=== PATIENT | female | born 1935 | race Caucasian/White ===

== ENCOUNTER 2020-01-02 09:21 | Outpatient (CLI) | payer MEDICARE, BC, SELFPAY ==
[2020-01-02 09:53] LABS: Alanine Aminotransferase 18 U/L (4-35); Albumin Level 4.3 g/dL (3.5-5.1); Alkaline Phosphatase 81 U/L (38-126); Aspartate Amino Transferase 26 U/L (14-36); Bilirubin,Total 0.6 mg/dL (0.2-1.3); Blood Urea Nitrogen 16 mg/dL (7-17); Calcium 9.1 mg/dL (8.4-10.2); Carbon Dioxide 28 mmol/L (22-30); Chloride 106 mmol/L (98-107); Cholesterol 166 mg/dL (0-200); Estimated Glomerular Filt Rate 48; Glucose 112 mg/dL (65-105); HDL Direct 47 mg/dL; Potassium 4.1 mmol/L (3.4-5.0); Sodium 141 mmol/L (137-145); Triglycerides 141 mg/dL (<150)
[2020-01-02 10:04] LABS: LDL Cholesterol Direct 86 mg/dL
== END 2020-01-02 09:22 | disposition home or self-care (01) ==
PROVIDERS: PCP Internal Medicine; Visit Provider Nurse Practitioner
DX: E78.5 Hyperlipidemia, unspecified (principal)
CPT/HCPCS: 36415; 80053; 80061

== ENCOUNTER 2020-05-19 14:16 | Outpatient (CLI) | payer MEDICARE, BC, SELFPAY ==
--- NOTE | ~2020-05-19 | XR_ITS ---
EXAMINATION: XR_[id number]_CR DATE: 05/19/2020 14:44 INDICATION: Thyroid pain. Fall. TECHNIQUE: A frontal view of the chest and 3 views of the 4 ribs were obtained. COMPARISON: Chest 2 views 08/10/2019, CT abdomen and pelvis 08/10/2019 FINDINGS: There is mild atelectasis at right lung base. No pleural effusion or pneumothorax. The hear t size is normal. Surgical clips in the right upper quadrant are likely from cholecystectomy. IMPRESSION: 1. No rib fracture. Reviewed, dictated and finalized at location A. IMPRESSION: 1. No rib fracture.
== END 2020-05-19 14:17 | disposition home or self-care (01) ==
LOC: ANHIMG 14:24
PROVIDERS: PCP Internal Medicine; Visit Provider Internal Medicine
DX: R07.81 Pleurodynia (principal); W19.XXXA Unspecified fall, initial encounter
CPT/HCPCS: 71101

== ENCOUNTER 2020-07-01 10:16 | Outpatient (CLI) | payer MEDICARE, BC, SELFPAY ==
[2020-07-01 10:59] LABS: Hemoglobin A1C 5.9 % (<5.7)
[2020-07-01 11:06] LABS: Alanine Aminotransferase 19 U/L (4-35); Albumin Level 4.1 g/dL (3.5-5.1); Alkaline Phosphatase 79 U/L (38-126); Anion Gap 10 mmol/L (8-16); Aspartate Amino Transferase 24 U/L (14-36); Bilirubin,Total 0.5 mg/dL (0.2-1.3); Blood Urea Nitrogen 17 mg/dL (7-17); Calcium 9.4 mg/dL (8.4-10.2); Carbon Dioxide 27 mmol/L (22-30); Chloride 106 mmol/L (98-107); Cholesterol 169 mg/dL (0-200); Estimated Glomerular Filt Rate 53; Glucose 121 mg/dL (65-105); HDL Direct 45 mg/dL; Potassium 4.1 mmol/L (3.4-5.0); Sodium 143 mmol/L (137-145); Triglycerides 129 mg/dL (<150)
[2020-07-01 11:18] LABS: LDL Cholesterol Direct 98 mg/dL
== END 2020-07-01 10:17 | disposition home or self-care (01) ==
PROVIDERS: PCP Internal Medicine; Visit Provider Internal Medicine
DX: E78.5 Hyperlipidemia, unspecified (principal); R73.03 Prediabetes; I10 Essential (primary) hypertension
CPT/HCPCS: 36415; 80053; 80061; 83036

== ENCOUNTER → 2020-09-12 13:46 | Outpatient (REF) | payer MEDICARE, BC, SELFPAY | LOC: ANHLAB 13:46 | PROVIDERS: PCP Internal Medicine; Visit Provider Nurse Practitioner | DX: D49.2 Neoplasm of unspecified behavior of bone, soft tissue, and skin (principal) | CPT/HCPCS: 88305 ==

== ENCOUNTER 2020-09-16 10:09 | Outpatient (CLI) | payer MEDICARE, BC, SELFPAY ==
--- NOTE | ~2020-09-16 | MM_ITS ---
EXAMINATION: MM screening brooke BI w radha HISTORY: Screening TECHNIQUE: Craniocaudal and mediolateral oblique 3-D tomosynthesis images were obtained and synthetic 2-D images were generated. CAD analysis was submitted and interpreted. COMPARISON: Comparison to multiple prior studies sequentially, with oldest reviewed study dated 08/03. BREAST PARENCHYMAL COMPOSITION: There are scattered areas of fibroglandular density. FINDINGS: There is no evidence of suspicious mass, calcification, or architectural distortion to sugg est malignancy in either breast. There has been no suspicious interval change. IMPRESSION: 1. No mammographic evidence of malignancy. 2. Recommend routine screening mammography in one year. BI-RADS Category 1: Negative Reviewed, dictated and finalized at location A. 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
== END 2020-09-16 10:10 | disposition home or self-care (01) ==
LOC: ANHIMG 10:13
PROVIDERS: PCP Internal Medicine; Visit Provider Nurse Practitioner Obstetrics & Gynecology
DX: Z12.31 Encounter for screening mammogram for malignant neoplasm of breast (principal)
CPT/HCPCS: 77063; 77067

== ENCOUNTER → 2020-11-07 10:03 | Outpatient (REF) | payer MEDICARE, BC, SELFPAY | LOC: ANHLAB 10:03 | PROVIDERS: PCP Internal Medicine; Visit Provider Nurse Practitioner | DX: C44.319 Basal cell carcinoma of skin of other parts of face (principal) | CPT/HCPCS: 88305; 88331 ==

== ENCOUNTER 2020-12-29 09:04 | Outpatient (CLI) | payer MEDICARE, BC, SELFPAY ==
--- NOTE | ~2020-12-29 | DEXA_ITS ---
Bone Density Report Name: Barbie Shipman Age: 85 Sex: Female Ethnicity: White Date of : 1935 Indication: postmenopausal; prior fracture; Referring Provider: Raina, Rosalie Flower Study: Bone densitometry was performed. Exam Date: December 29, 2020 Accession number: [id number] Bone Density: Region BMD T-score Z-score Classification AP Spine (L1-L4) 1.141 0.9 3.7 Normal Femoral Neck (Left) 0.752 -0.9 1.6 Normal Total Hip (Left) 0.956 0.1 2.4 Normal Total Hip Bilateral Avg 0.934 -0.1 2.2 Normal Femoral Neck (Right) 0.683 -1.5 1.0 Osteopenia Total Hip (Right) 0.910 -0.3 2.0 Normal World Health Organization criteria for BMD impression classify patients as: Normal (T-score at or above -1.0), Osteopenia (T-score between -1.0 and -2.5), or Osteoporosis (T-score at or below -2.5). 10-year Fracture Risk(1): Major Osteoporotic Fracture 19% Hip Fracture 4.4% Reported Risk Factors: [place] (), Neck BMD=0.683, BMI=31.6, previous fracture (1) FRAX(R) Version 3.08. Fracture probability calculated for an untreated patient. Fracture probability may be lower if the patient has received treatment. Previous Exams: Region Exam Age BMD T-score BMD Change BMD Change Date g/cm2 vs Baseline vs Previous AP Spine(L1-L4) 12/29/2020 85 1.141 0.9 0.057(5.2%)# 0.057(5.2%)# 08/08/2010 75 1.084 0.3 Total Hip(Left) 12/29/2020 85 0.956 0.1 -0.012(-1.2%)# -0.012(-1.2%)# 08/08/2010 75 0.968 0.2 Total Hip(Right) 12/29/2020 85 0.910 -0.3 0.012(1.3%)# 0.012(1.3%)# 08/08/2010 75 0.898 -0.4 *Denotes significance at 95% confidence level, LSC for AP Spine = 0.022 g/cm2, LSC for Total Hip = 0.027 g/cm2 Clinical Information Provided by Patient: Has had a low trauma fracture Has used the following medications: Vitamin D, Calcium Patient maximum height was 65 No regular weight bearing exercise Onset of menses at age 14 Number of children 5 Impression: The patient has low bone mass, based on the Right Femoral Neck T-score. The patient has an estimated ten-year risk of hip fracture of 4.4% and an estimated ten-year risk of major fracture of 19%, based on the WHO FRAX algorithm. The patient has risk factors, including: previous fracture. No significant bone loss was observed. Discussion: BONE DENSITY IS LOW AT ONE OR MORE SKELETAL SITES. THE PATIENT'S BMD AND CLINICAL RISK FACTORS CONTRIBUTE TO THIS PATIENT'S INCREASED RISK OF FRAC
[2020-12-29 09:39] LABS: Alanine Aminotransferase 17 U/L (4-35); Albumin Level 4.1 g/dL (3.5-5.1); Alkaline Phosphatase 80 U/L (38-126); Anion Gap 7 mmol/L (8-16); Aspartate Amino Transferase 37 U/L (14-36); Bilirubin,Total 0.7 mg/dL (0.2-1.3); Blood Urea Nitrogen 17 mg/dL (7-17); Carbon Dioxide 29 mmol/L (22-30); Chloride 104 mmol/L (98-107); Cholesterol 150 mg/dL (0-200); Estimated Glomerular Filt Rate 39; Glucose 115 mg/dL (65-105); HDL Direct 41 mg/dL; Potassium 4.3 mmol/L (3.4-5.0); Sodium 140 mmol/L (137-145); Triglycerides 121 mg/dL (<150)
[2020-12-29 09:50] LABS: LDL Cholesterol Direct 83 mg/dL
[2020-12-29 11:38] LABS: Hemoglobin A1C 5.9 % (<5.7)
== END 2020-12-29 09:05 | disposition home or self-care (01) ==
PROVIDERS: PCP Internal Medicine; Referring Provider Nurse Practitioner; Visit Provider Nurse Practitioner Obstetrics & Gynecology
DX: E78.5 Hyperlipidemia, unspecified (principal); R73.03 Prediabetes; Z78.0 Asymptomatic menopausal state; M85.88 Other specified disorders of bone density and structure, other site
CPT/HCPCS: 36415; 77080; 80053; 80061; 83036

== ENCOUNTER → 2021-03-17 01:56 | Outpatient (CLI) | payer MEDICARE, BC, SELFPAY ==
[2021-03-17 19:11] LABS: SARS-CoV-2 RNA PCR Negative
== END ==
PROVIDERS: PCP Internal Medicine; Visit Provider Internal Medicine
DX: R68.89 Other general symptoms and signs (principal); Z20.822 Contact with and (suspected) exposure to COVID-19
CPT/HCPCS: C9803; U0003; U0005

== ENCOUNTER 2021-07-05 08:27 | Outpatient (CLI) | payer MEDICARE, BC, SELFPAY ==
[2021-07-05 09:31] LABS: Alanine Aminotransferase 22 U/L (4-35); Albumin Level 4.2 g/dL (3.5-5.1); Alkaline Phosphatase 72 U/L (38-126); Anion Gap 7 mmol/L (8-16); Aspartate Amino Transferase 34 U/L (14-36); Bilirubin,Total 0.8 mg/dL (0.2-1.3); Blood Urea Nitrogen 16 mg/dL (7-17); Calcium 8.7 mg/dL (8.4-10.2); Carbon Dioxide 30 mmol/L (22-30); Chloride 104 mmol/L (98-107); Cholesterol 143 mg/dL (0-200); Estimated Glomerular Filt Rate 43; Glucose 109 mg/dL (65-110); HDL Direct 40 mg/dL; Potassium 3.9 mmol/L (3.4-5.0); Sodium 141 mmol/L (137-145); Triglycerides 136 mg/dL (<150)
[2021-07-05 09:42] LABS: LDL Cholesterol Direct 80 mg/dL
[2021-07-05 11:32] LABS: Hemoglobin A1C 5.9 % (<5.7)
== END 2021-07-05 08:28 | disposition home or self-care (01) ==
PROVIDERS: PCP Internal Medicine; Visit Provider Internal Medicine
DX: R73.03 Prediabetes (principal); I10 Essential (primary) hypertension; E78.5 Hyperlipidemia, unspecified; Z79.899 Other long term (current) drug therapy
CPT/HCPCS: 36415; 80053; 80061; 83036

== ENCOUNTER → 2021-09-14 09:52 | Outpatient (CLI) | payer MEDICARE, BC, SELFPAY ==
[2021-09-14 14:13] LABS: Influenza A QL RT-PCR Negative (Negative); Influenza B QL RT-PCR Negative (Negative); SARS-CoV-2 RNA PCR Negative
== END ==
PROVIDERS: PCP Internal Medicine; Visit Provider Internal Medicine
DX: R09.89 Other specified symptoms and signs involving the circulatory and respiratory systems (principal); Z20.822 Contact with and (suspected) exposure to COVID-19
CPT/HCPCS: 87502; C9803; U0003; U0005

== ENCOUNTER 2021-11-02 14:26 | Outpatient (CLI) | payer MEDICARE, BC, SELFPAY ==
--- NOTE | ~2021-11-02 | XR_ITS ---
EXAMINATION: XR chest 2V 11/02/2021 14:44 INDICATION: Acute upper respiratory infection PROCEDURE: 2 view chest COMPARISON: Comparison to multiple prior studies sequentially, with oldest reviewed study dated 01/26. FINDINGS: The lungs are clear. Elevated right diaphragm. The cardiomediastinal silhouette is within n ormal limits. There are no pleural effusions. There is no pneumothorax suspected. There are cholec ystectomy clips. IMPRESSION: 1: NO ACUTE CARDIOPULMONARY DISEASE. Reviewed, dictated and finalized at location A. 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
== END 2021-11-02 14:27 | disposition home or self-care (01) ==
PROVIDERS: PCP Internal Medicine; Visit Provider Internal Medicine
DX: J06.9 Acute upper respiratory infection, unspecified (principal)
CPT/HCPCS: 71046

== ENCOUNTER 2022-01-11 08:57 | Outpatient (CLI) | payer MEDICARE, BC, SELFPAY ==
[2022-01-11 16:35] LABS: Alanine Aminotransferase 20 U/L (6-35); Alkaline Phosphatase 87 U/L (38-126); Anion Gap 6 mmol/L (8-16); Aspartate Amino Transferase 80 U/L (14-36); Bilirubin,Total 0.7 mg/dL (0.2-1.3); Blood Urea Nitrogen 16 mg/dL (7-17); Calcium 8.9 mg/dL (8.4-10.2); Carbon Dioxide 25 mmol/L (22-30); Chloride 109 mmol/L (98-107); Cholesterol 167 mg/dL (0-200); Estimated Glomerular Filt Rate 43; Glucose 103 mg/dL (65-110); HDL Direct 38 mg/dL; Potassium 4.3 mmol/L (3.4-5.0); Sodium 140 mmol/L (137-145); Triglycerides 151 mg/dL (<150)
[2022-01-11 16:46] LABS: LDL Cholesterol Direct 87 mg/dL
== END 2022-01-11 08:58 | disposition home or self-care (01) ==
PROVIDERS: PCP Internal Medicine; Visit Provider Nurse Practitioner
DX: E78.5 Hyperlipidemia, unspecified (principal); R73.03 Prediabetes
CPT/HCPCS: 36415; 80053; 80061; 83036

== ENCOUNTER 2022-01-20 12:47 | Outpatient (CLI) | payer MEDICARE, BC, SELFPAY ==
--- NOTE | ~2022-01-20 | CT_ITS ---
EXAMINATION: CT sinus wo con DATE: 01/20/2022 13:27 INDICATION: TECHNIQUE: Computed tomography (CT) of the paranasal sinuses was performed without intravenous contra st. The dose-length product (DLP) was 340.69 mGy-cm. Iterative reconstruction was used. COMPARISON: None FINDINGS: Post surgical changes in the ethmoid air cells and medial maxillary sinus quilse. Opacified frontal and remnant ethmoid air cells. Thick mucosa within the bilateral sphenoid and maxillary sinus es. No air-fluid levels. Mild leftward bowing of the upper, posterior bony nasal septum. Mastoid air cells are well aerated. Bilateral antral windows are open. Bilateral lens replacements. IMPRESSION: 1. Pansinusitis-extensive mucoperiosteal thickening throughout the paranasal sinuses. 2. Post surgical changes, described above. Reviewed, dictated and finalized at location K. IMPRESSION: 1. Pansinusitis-extensive mucoperiosteal thickening throughout the paranasal si nuses. 2. Post surgical changes, described above.
== END 2022-01-20 12:48 | disposition home or self-care (01) ==
PROVIDERS: PCP Internal Medicine; Visit Provider Internal Medicine
DX: R51.9 Headache, unspecified (principal); J01.40 Acute pansinusitis, unspecified; Z98.890 Other specified postprocedural states
CPT/HCPCS: 70486

== ENCOUNTER 2022-05-16 14:42 | Outpatient (NON) | payer MEDICARE, BC, SELFPAY | END 2022-05-16 14:43 | disposition home or self-care (01) | LOC: ANHGOSHLAB 14:45 | PROVIDERS: PCP Internal Medicine; Visit Provider Otolaryngology | DX: J33.9 Nasal polyp, unspecified (principal); J32.9 Chronic sinusitis, unspecified | CPT/HCPCS: 87070 ==

== ENCOUNTER 2022-07-30 09:27 | Outpatient (CLI) | payer MEDICARE, BC, SELFPAY ==
[2022-07-30 13:35] LABS: Alanine Aminotransferase 21 U/L (6-35); Albumin Level 4.2 g/dL (3.5-5.1); Alkaline Phosphatase 85 U/L (38-126); Anion Gap 12 mmol/L (8-16); Aspartate Amino Transferase 31 U/L (14-36); Bilirubin,Total 0.7 mg/dL (0.2-1.3); Blood Urea Nitrogen 14 mg/dL (7-17); Calcium 8.8 mg/dL (8.4-10.2); Carbon Dioxide 23 mmol/L (22-30); Chloride 106 mmol/L (98-107); Cholesterol 167 mg/dL (0-200); Estimated Glomerular Filt Rate 47; Glucose 96 mg/dL (65-110); HDL Direct 40 mg/dL; Potassium 4.1 mmol/L (3.4-5.0); Sodium 141 mmol/L (137-145); Triglycerides 155 mg/dL (<150)
[2022-07-30 13:46] LABS: LDL Cholesterol Direct 87 mg/dL
[2022-07-30 14:21] LABS: Hemoglobin A1C 6.4 % (<5.7)
== END 2022-07-30 09:28 | disposition home or self-care (01) ==
LOC: ANHWCLAB 09:29
PROVIDERS: PCP Internal Medicine; Visit Provider Internal Medicine
DX: R73.03 Prediabetes (principal); I10 Essential (primary) hypertension; Z79.899 Other long term (current) drug therapy; E78.5 Hyperlipidemia, unspecified
CPT/HCPCS: 36415; 80053; 80061; 83036

== ENCOUNTER 2023-02-09 08:39 | Outpatient (CLI) | payer MEDICARE, BC, SELFPAY ==
[2023-02-09 09:20] LABS: Alanine Aminotransferase 21 U/L (6-35); Albumin Level 4.1 g/dL (3.5-5.1); Alkaline Phosphatase 81 U/L (38-126); Anion Gap 2 mmol/L (8-16); Aspartate Amino Transferase 27 U/L (14-36); Bilirubin,Total 0.6 mg/dL (0.2-1.3); Blood Urea Nitrogen 16 mg/dL (7-17); Carbon Dioxide 32 mmol/L (22-30); Chloride 107 mmol/L (98-107); Cholesterol 149 mg/dL (0-200); Estimated Glomerular Filt Rate 39; Glucose 115 mg/dL (65-110); HDL Direct 40 mg/dL; Potassium 4.3 mmol/L (3.4-5.0); Sodium 141 mmol/L (137-145); Triglycerides 140 mg/dL (<150)
[2023-02-09 09:31] LABS: LDL Cholesterol Direct 84 mg/dL
== END 2023-02-09 08:40 | disposition home or self-care (01) ==
LOC: ANHLAB 08:43
PROVIDERS: PCP Family Medicine; Visit Provider Nurse Practitioner
DX: E78.5 Hyperlipidemia, unspecified (principal); R73.03 Prediabetes
CPT/HCPCS: 36415; 80053; 80061; 83036

== ENCOUNTER 2023-03-18 11:40 | Outpatient (CLI) | payer MEDICARE, BC, SELFPAY ==
[2023-03-18 12:16] LABS: Alanine Aminotransferase 20 U/L (6-35); Aspartate Amino Transferase 27 U/L (14-36)
== END 2023-03-18 11:41 | disposition home or self-care (01) ==
PROVIDERS: PCP Family Medicine; Visit Provider Podiatrist Foot & Ankle Surgery
DX: B35.1 Tinea unguium (principal)
CPT/HCPCS: 36415; 84450; 84460

== ENCOUNTER 2023-05-23 08:33 | Outpatient (CLI) | payer MEDICARE, BC, SELFPAY ==
--- NOTE | ~2023-05-23 | MM_ITS ---
EXAMINATION: MM screening brooke BI w radha HISTORY: Screening TECHNIQUE: Craniocaudal and mediolateral oblique 3-D tomosynthesis images were obtained and synthetic 2-D images were generated. CAD analysis was submitted and interpreted. COMPARISON: Comparison to multiple prior studies sequentially, with oldest reviewed study dated 11/09. BREAST PARENCHYMAL COMPOSITION: The breasts are almost entirely fatty. FINDINGS: There is no evidence of suspicious mass, calcification, or architectural distortion to sugg est malignancy in either breast. There has been no suspicious interval change. IMPRESSION: 1. No mammographic evidence of malignancy. 2. Recommend routine screening mammography in one year. BI-RADS Category 1: Negative Reviewed, dictated and finalized at location A.
--- NOTE | ~2023-05-23 | DEXA_ITS ---
Bone Density Report Name: JUAN GALEANO Age: 88 Sex: Female Ethnicity: White Date of : 1935 Indication: postmenopausal; screening for osteoporosis; height loss; inflammatory bowel disease; prior fracture; Referring Provider: ANGÉLICA PERALTA Study: Bone densitometry was performed. Exam Date: May 23, 2023 Accession number: [id number] Bone Density: Region BMD T-score Z-score Classification AP Spine(L1-L4) 1.104 0.5 3.4 Normal Femoral Neck (Left) 0.734 -1.0 1.5 Normal Total Hip (Left) 0.990 0.4 2.7 Normal Femoral Neck (Right) 0.680 -1.5 1.0 Osteopenia Total Hip (Right) 0.976 0.3 2.6 Normal Total Hip Mean 0.983 0.4 2.7 Normal World Health Organization criteria for BMD impression classify patients as: Normal (T-score at or above -1.0), Osteopenia (T-score between -1.0 and -2.5), or Osteoporosis (T-score at or below -2.5). 10-year Fracture Risk(1): Major Osteoporotic Fracture 17% Hip Fracture 4.1% Reported Risk Factors: [place] (), Neck BMD=0.680, BMI=37.2, previous fracture (1) FRAX(R) Version 3.08. Fracture probability calculated for an untreated patient. Fracture probability may be lower if the patient has received treatment. Previous Exams: Region Exam Age BMD T-score BMD Change BMD Change Date g/cm2 vs Baseline vs Previous AP Spine (L1-L4) 05/23/2023 88 1.104 0.5 -0.036 (-3.2%) -0.036 (-3.2%) 12/29/2020 85 1.141 0.9 Total Hip(Left) 05/23/2023 88 0.990 0.4 0.034 (3.5%)# 0.034 (3.5%)# 12/29/2020 85 0.956 0.1 Total Hip(Right) 05/23/2023 88 0.976 0.3 0.066 (7.3%)# 0.066 (7.3%)# 12/29/2020 85 0.910 -0.3 *Denotes significance at 95% confidence level, LSC for AP Spine = 0.022 g/cm2, LSC for Total Hip = 0.027 g/cm2 # Denotes dissimilar scan types or analysis methods Clinical Information Provided by Patient: Has had a low trauma fracture Has used the following medications: Vitamin D, Calcium Has the following medical conditions: Inflammatory bowel diseases Patient maximum height was 64.5 Onset of menses at age 14 Number of children 5 Impression: The patient has low bone mass, based on the Right Femoral Neck T-score. The patient has an estimated ten-year risk of hip fracture of 4.1% and an estimated ten-year risk of major fracture of 17%, based on the WHO FRAX algorithm. The patient has risk factors, including: previous fracture. No significant bone loss was observed.
== END 2023-05-23 08:34 | disposition home or self-care (01) ==
PROVIDERS: PCP Family Medicine; Visit Provider Nurse Practitioner Family
DX: Z12.31 Encounter for screening mammogram for malignant neoplasm of breast (principal); Z78.0 Asymptomatic menopausal state; M85.851 Other specified disorders of bone density and structure, right thigh
CPT/HCPCS: 77063; 77067; 77080

== ENCOUNTER 2023-07-09 12:07 | Outpatient (CLI) | payer MEDICARE, BC, SELFPAY ==
[2023-07-09 12:51] LABS: Alanine Aminotransferase 18 U/L (6-35); Aspartate Amino Transferase 48 U/L (14-36)
== END 2023-07-09 12:08 | disposition home or self-care (01) ==
PROVIDERS: PCP Family Medicine; Visit Provider Podiatrist Foot & Ankle Surgery
DX: B35.1 Tinea unguium (principal)
CPT/HCPCS: 36415; 84450; 84460

== ENCOUNTER 2023-08-20 12:18 | Outpatient (CLI) | payer MEDICARE, BC, SELFPAY ==
[2023-08-20 13:05] LABS: Basophils Percent Auto 0.8 % (0.2-1.2); Eosinophils Absolute Auto 0.2 K/mm3 (0-0.3); Eosinophils Percent Auto 3.5 % (0-4.4); Hematocrit 42.8 % (37.0-47.0); Hemoglobin 13.5 g/dL (12.0-15.0); Lymphocytes Absolute Auto 1.97 K/mm3 (0.9-3.2); Lymphocytes Percent Auto 37.9 % (18.3-44.2); Mean Corpuscular HGB Conc 31.5 g/dl (32-36); Mean Corpuscular Hemoglobin 29.5 pg (26-34); Mean Corpuscular Volume 93.4 fl (80-100); Mean Platelet Volume 10.9 fl (7.4-10.4); Monocytes Absolute Auto 0.5 K/mm3 (0.1-0.6); Neutrophils Absolute Auto 2.5 K/mm3 (1.3-6.7); Neutrophils Percent Auto 48.8 % (45.5-73.1); Platelet Count Result 220 k/mm3 (150-375); Red Blood Count 4.58 M/mm3 (4.2-5.4); Red Cell Distribution Width 14.6 % (11.5-14.5); White Blood Count 5.2 K/mm3 (4.5-10.0)
[2023-08-20 13:14] LABS: Hemoglobin A1C 6.2 % (<5.7)
[2023-08-20 13:15] LABS: Alanine Aminotransferase 20 U/L (6-35); Albumin Level 3.9 g/dL (3.5-5.1); Alkaline Phosphatase 75 U/L (38-126); Anion Gap 6 mmol/L (8-16); Aspartate Amino Transferase 27 U/L (14-36); Bilirubin,Total 0.7 mg/dL (0.2-1.3); Blood Urea Nitrogen 14 mg/dL (7-17); Calcium 9.1 mg/dL (8.4-10.2); Carbon Dioxide 25 mmol/L (22-30); Chloride 110 mmol/L (98-107); Estimated Glomerular Filt Rate 47; Glucose 104 mg/dL (65-110); Potassium 4.2 mmol/L (3.4-5.0); Sodium 141 mmol/L (137-145)
[2023-08-20 13:45] LABS: Thyroid Stimulating Hormone 0.321 uIU/mL (0.465-4.680)
== END 2023-08-20 12:19 | disposition home or self-care (01) ==
LOC: ANHLAB 12:20
PROVIDERS: PCP Nurse Practitioner Family; Visit Provider Nurse Practitioner Family
DX: E78.5 Hyperlipidemia, unspecified (principal); R73.03 Prediabetes; I10 Essential (primary) hypertension; R53.83 Other fatigue
CPT/HCPCS: 36415; 80053; 83036; 84443; 85025

== ENCOUNTER 2023-08-22 12:56 | Outpatient (CLI) | payer MEDICARE, BC, SELFPAY ==
--- NOTE | ~2023-08-22 | XR_ITS ---
AP and oblique views of the bilateral ribs, and PA and lateral chest radiographs Clinical History: Pain Findings: No rib fracture is seen. Osseous alignment is anatomic. Lungs are clear, without focal cons olidation or pleural effusion. Cardiomediastinal contour is within normal limits. Soft tissues are un remarkable. Impression: No rib fracture is seen. Normal chest. Reviewed, dictated and finalized at [facility]. ASSEMBLER Impression: No rib fracture is seen. Normal chest.
== END 2023-08-22 12:57 | disposition home or self-care (01) ==
PROVIDERS: PCP Nurse Practitioner Family; Visit Provider Nurse Practitioner Family
DX: R07.81 Pleurodynia (principal)
CPT/HCPCS: 71046; 71110

== ENCOUNTER 2023-10-17 14:30 | Outpatient (CLI) | payer MEDICARE, BC, SELFPAY ==
--- NOTE | ~2023-10-17 | CT_ITS ---
. EXAMINATION: CT abdomen wo con DATE: 10/17/2023 14:49 INDICATION: Periodic right lower quadrant abdominal pain TECHNIQUE: Computed tomography (CT) of the abdomen and pelvis was performed without intravenous contr ast. Automated exposure control and iterative reconstruction technique were employed. Exam dose: 827 .72 mGy-cm total exam DLP. COMPARISON: 08/10/2019 CT abdomen pelvis FINDINGS: Chronic discoid atelectasis or more likely scarring in the lower lobes. No basilar pulmonar y consolidation. No pericardial or pleural effusion. Cardiomegaly. Coronary artery calcification. Status post cholecystectomy. The liver, spleen, pancreas, adrenal glands are unremarkable. Multiple b ilateral renal cysts, measuring up to 3.8 cm dimension on the right, 6 cm on the left. Normal appendix. Diverticulosis of the right and left colon. No CT evidence of diverticulitis. No bowel obstruction or intraperitoneal free air is detected. There is atherosclerotic calcification but normal caliber of the abdominal aorta. Probably calcificat ion at the origins of both renal arteries. No intraperitoneal or retroperitoneal mass lesion or adeno katey or ascites is detected. Small fat-containing umbilical hernia. Degenerative changes of the thoracic and lumbar spine, including prominent degenerative changes apoph yseal joints with associated grade 1 anterolisthesis at the L4-5 level, multilevel degenerative disc disease, particularly severe at L2-3, L4-5, L5-S1, most severe at L3-4. No suspicious osteolytic or osteoblastic lesions are noted. There is benign L5 vertebral body hemangi laurel. 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 Reviewed, dictated and finalized at location L. ECTOR OF AQUARIUM SPECIMENS
== END 2023-10-17 14:31 | disposition home or self-care (01) ==
LOC: ANHIMG 14:32
PROVIDERS: PCP Nurse Practitioner Family; Visit Provider Nurse Practitioner Family
DX: R10.9 Unspecified abdominal pain (principal); R91.8 Other nonspecific abnormal finding of lung field; I51.7 Cardiomegaly; Z90.49 Acquired absence of other specified parts of digestive tract; N28.1 Cyst of kidney, acquired; K57.90 Diverticulosis of intestine, part unspecified, without perforation or abscess without bleeding
CPT/HCPCS: 74150

== ENCOUNTER 2024-03-03 09:07 | Outpatient (CLI) | payer MEDICARE, BC, SELFPAY ==
[2024-03-03 10:50] LABS: Alanine Aminotransferase 16 U/L (6-35); Albumin Level 4.1 g/dL (3.5-5.1); Alkaline Phosphatase 73 U/L (38-126); Anion Gap 7 mmol/L (4-12); Aspartate Amino Transferase 26 U/L (14-36); Bilirubin,Total 0.9 mg/dL (0.2-1.3); Blood Urea Nitrogen 16 mg/dL (7-17); Carbon Dioxide 26 mmol/L (22-30); Chloride 108 mmol/L (98-107); Estimated Glomerular Filt Rate 47; Glucose 100 mg/dL (65-110); Potassium 4.2 mmol/L (3.4-5.0); Sodium 141 mmol/L (137-145)
== END 2024-03-03 09:08 | disposition home or self-care (01) ==
LOC: ANHLAB 09:10
PROVIDERS: PCP Nurse Practitioner Family; Visit Provider Nurse Practitioner Family
DX: R79.89 Other specified abnormal findings of blood chemistry (principal); R73.03 Prediabetes; I10 Essential (primary) hypertension; E78.5 Hyperlipidemia, unspecified; F41.9 Anxiety disorder, unspecified
CPT/HCPCS: 36415; 80053; 84439; 84443

== ENCOUNTER 2024-06-10 14:00 | Outpatient (CLI) | payer MEDICARE, BC, SELFPAY ==
--- NOTE | ~2024-06-10 | MM_ITS ---
EXAMINATION: MM screening brooke BI w radha HISTORY: Screening TECHNIQUE: Craniocaudal and mediolateral oblique 3-D tomosynthesis images were obtained and synthetic 2-D images were generated. CAD analysis was submitted and interpreted. COMPARISON: Echo multiple 06/15/2014 BREAST PARENCHYMAL COMPOSITION: Not Dense: The breasts are almost entirely fatty. FINDINGS: There is no evidence of suspicious mass, calcification, or architectural distortion to sugg est malignancy in either breast. There has been no suspicious interval change. IMPRESSION: 1. No mammographic evidence of malignancy. 2. Recommend routine screening mammography in one year. BI-RADS Category 1: Negative Reviewed, dictated and finalized at location B.
== END 2024-06-10 14:01 | disposition home or self-care (01) ==
LOC: ANHIMG 14:02
PROVIDERS: PCP Nurse Practitioner Family; Visit Provider Nurse Practitioner Family
DX: Z12.31 Encounter for screening mammogram for malignant neoplasm of breast (principal)
CPT/HCPCS: 77063; 77067

== ENCOUNTER 2024-09-03 15:30 | Emergency (ER) | payer MEDICARE, BC, SELFPAY ==
--- NOTE | ~2024-09-03 | XR_ITS ---
EXAMINATION: XR chest 2V DATE: 09/03/2024 16:16 INDICATION: Cough. TECHNIQUE: Frontal and lateral views of the chest were obtained. COMPARISON: Chest 2 views 08/22/2023 FINDINGS: There is no pneumonia, pleural effusion, or pneumothorax. The heart size is normal. Surgica l clips in the right upper quadrant are likely from cholecystectomy. IMPRESSION: 1. No acute cardiopulmonary disease. Reviewed, dictated and finalized at location A. 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
[2024-09-03 15:45] VITALS: BP 137/66; PULSE 61; RESP 16; TEMP 36.3; O2SAT 98
--- NOTE | 2024-09-03 16:00 | ED.URI ---
HPI - URI/Sore Throat General Chief Complaint: Upper Respiratory Infection Stated Complaint: chest pain/coughing/side pain Time Seen by Provider: 09/03/24 16:21 Source: patient, RN notes reviewed and old records reviewed Mode of arrival: ambulatory Limitations: no limitations History of Present Illness HPI Narrative: patient presents with complaints of productive cough for 8 or 9 days. She reports that it is getting worse. She reports that she has decreased energy, has been sleeping more. Denies any shortness of breath, but does report extreme increase in sputum production. unsure of fever status. She does report some right lower lung pain, worse with cough. She has been taking [id number] medications with minimal relief. Has had multiple sick contacts recently Related Data Home Medications ?Medication ?Instructions ?Recorded ?Confirmed ?Last Taken ?Type acetaminophen 500 mg tablet 500 mg PO Q6H PRN Pain 09/04/19 04/22/24 Unknown History (Tylenol Extra Strength) multivitamin with minerals 1 tablet PO DAILY 09/04/19 04/22/24 Unknown History (Hair,Skin and Nails tablet) turmeric 400 mg capsule 400 mg PO DAILY 09/04/19 04/22/24 Unknown History Allergies Allergy/AdvReac Type Severity Reaction Status Date / Time codeine Allergy Mild NUMBNESS Verified 09/03/24 15:36 levofloxacin Allergy Mild Nausea and Verified 09/03/24 15:36 Vomiting Penicillins Allergy Mild SKIN SORE Verified 09/03/24 15:36 TO TOUCH propranolol Allergy Mild CAN'T Verified 09/03/24 15:36 TOLERATE, ABD PAIN Sulfa (Sulfonamide Allergy Mild ABD PAIN Verified 09/03/24 15:36 Antibiotics) verapamil Allergy Mild ABD PAIN Verified 09/03/24 15:36 ondansetron (From Zofran) Allergy Unknown Unknown Verified 09/03/24 15:36 Review of Systems Review of Systems: All systems reviewed & are unremarkable except as noted in HPI and below Constitutional: Constitutional: Reports no additional constitutional complaints and Reports lethargy ENT: Reports system reviewed and no additional complaints, except as documented Cardiovascular: Cardiovascular: Reports no additional cardiovascular complaints Respiratory: Respiratory: Reports no additional respiratory complaints, Reports chest congestion, Reports cough and Reports wheezing Gastrointestinal: Gastrointestinal: Reports no additional gastrointestinal complaints PMFSH Past Medical History Medical History Plantar fasciitis of left foot COVID-19 History of cardiac disorder History of open sigmoidectomy Basal cell carcinoma (BCC) of right forehead Skin neoplasm On longterm drug therapy Facial pain Stress at home Paroxysmal atrial fibrillation Benign essential hypertension COPD, mild Other and unspecified hyperlipidemia Prediabetes Primary insomnia Generalized weakness History of atrial fibrillation Chest pain Foot fracture, right Patella fracture rt patella Anxiety Arthritis IBS (irritable bowel syndrome) Diverticulitis HLD (hyperlipidemia) Mitral valve prolapse Restless leg syndrome Cataracts, bilateral Seborrheic keratosis Actinic keratosis Skin cancer screening History of basal cell carcinoma (BCC) Surgical History Surgical History Status post laparoscopic-assisted sigmoidectomy Hx of local excision of skin lesion History of arthroscopic knee surgery rt knee Hx of cataract surgery History of cholecystectomy History of sinus surgery 1992, 2001, 2004 History of back surgery Family History Family History Father Carcinoma of colon Hypertension Mother TIA (transient ischemic attack) Heart palpitations Sibling Arthritis Other Family history of malignant neoplasm Social History Social History Smoking packs per day: 0.5 Smoking cigarettes per day: 10.0 Years smoked: 2 Smoking pack-years: 1.00 Smoking status: Former smoker Tobacco type: cigarettes Second hand tobacco smoke exposure: No Smoking end date: 09/10/1959 Alcohol intake: never Substance use: never Substance use type: does not use Lack of Transportation: No Lack of Food: Never True Current Housing: I Have Housing Concerned About Future Housing: No Difficulty Paying Gas/Electric Bills: No Difficulty Paying for Meds: No Currently Unemployed: No Education: High School Diploma/GED Difficulty w/ Childcare or Family Care: No Living arrangements: alone Additional living arrangements comments: daughter lives with Occupation/Education: retired Gender identity (if verbalized by the patient): Female Sexual Orientation (if Verbalized by the Patient): Straight or Heterosexual Spiritual care concerns: No Comments At the time of my signature, I reviewed and agree with the nursing past medical, surgical, social, and family history. There is no relevant family history pertinent to the patient complaint. Exam Const: General: cooperative, no acute distress, alert and awake Orientation/consciousness: oriented to person, oriented to place and oriented to time HENMT: Head: normal to inspection Mouth: Yes moist mucous membranes Resp: Effort & Inspection: normal respiratory effort and able to speak in complete sentences Auscultation: clear to auscultation bilaterally, crackles on the right at the base, no rales, no rhonchi and no wheezes Cardio: Palpation: normal PMI Rate: regular rate Rhythm: regular rhythm Heart sounds: S1 normal heart sound present and S2 normal heart sound present Neuro: General: oriented to person, oriented to place and oriented to time Cranial nerves: Yes CN's II-XII intact bilaterally Psych: Appearance: grossly normal Thought process: Normal thought process present Insight: Good insight present (Psych) Judgement: Good judgement present (Psych) Course Course Level of Care: Express Care Visit Vital Signs Vital signs: Vital Signs Temperature 97.4 F L 09/03/24 15:45 Pulse Rate 61 09/03/24 15:45 Respiratory Rate 16 09/03/24 15:45 Blood Pressure 137/66 09/03/24 15:45 Pulse Oximetry 98 09/03/24 15:45 Oxygen Delivery Room Air 09/03/24 15:45 Temperature 97.4 F L 09/03/24 15:45 Pulse Rate 61 09/03/24 15:45 Respiratory Rate 16 09/03/24 15:45 Blood Pressure 137/66 09/03/24 15:45 Pulse Oximetry 98 09/03/24 15:45 Oxygen Delivery Room Air 09/03/24 15:45 Reviewed MDM - URI/Sore Throat MDM Narrative Medical decision making narrative: clear chest x-ray, but history and exam very consistent with atypical pneumonia that is prevalent within the community, so will treat as such. Start doxycycline, prednisone, bronchodilator. Productive wet cough noted throughout exam, but no respiratory distress. Patient is not toxic appearing, stable for discharge home with p.o. antibiotic therapy. Discharge instructions reviewed with patient, as well as provided in writing per nursing staff. The instructions also include specific and strict return/GO TO THE ER as well as f/u information. All questions have been answered, and the patient deny any further questions with discharge and discharge plan. Some parts of this dictation were generated by voice recognition software and may contain typographical and/or grammatical inaccuracies. Differential Diagnosis Differential diagnosis: Likely upper respiratory infection, viral infection and bronchitis Medical Records Attestation: I reviewed the patient's medical records. Imaging Data Attestation: I personally reviewed and interpreted this imaging study as follows: My impression: No acute finding Radiologist's impression: [facility] [address] [place] [id number] XRay Report Signed Patient: Barbie Shipman : 1935 MR#: [id number] Age: 89 Acct:[id number] Loc: [facility] ADM Date: 09/03/24Attending Dr: Ordering Physician: Noemy Romero FNP Date of Service: 09/03/24 Procedure(s): XR chest 2V Accession Number(s): [id number] cc: Noemy Romero FNP; aKren Guillen APRN~ EXAMINATION: XR chest 2V DATE: 09/03/2024 16:16 INDICATION: Cough. TECHNIQUE: Frontal and lateral views of the chest were obtained. COMPARISON: Chest 2 views 08/22/2023 FINDINGS: There is no pneumonia, pleural effusion, or pneumothorax. The heart size is normal. Surgical clips in the right upper quadrant are likely from cholecystectomy. IMPRESSION: 1. No acute cardiopulmonary disease. Reviewed, dictated and finalized at location A. ANALYST Please be advised this is a medical document. It is intended for [id number] communication. It is written in medical language and may contain unfamiliar abbreviations or verbiage. Medical documents are intended to carry relevant information, facts as evident, and the clinical opinion of the practitioner at the time of the encounter. This report may have been done utilizing a voice recognition system. Attempts have been made to correct errors. However, there may be uncorrected grammatical, spelling, and recognition errors present. The file time of this note does not necessarily represent the time the patient was seen. Dictated By: Neri Prieto MD 09/03/24 1616 Signed By: <Electronically signed by Neri Prieto MD in OV> 09/03/24 1617 Discharge Plan Discharge Clinical Impression: Atypical pneumonia Patient Disposition: Home, Self-Care Condition: Stable Instructions: Antibiotic Form, Community Acquired Pneumonia (ED) Additional Instructions: take medications as prescribed. Follow with primary care provider. Emergency department for new or worse symptoms Patient Language: Luxembourgish Prescriptions: New prednisone 50 mg tablet 50 mg PO DAILY Qty: 5 0RF albuterol sulfate [Ventolin HFA] 90 mcg/actuation HFA aerosol inhaler 2 puff inhalation QID PRN (Reason: shortness of breath or wheezing) Qty: 8.5 0RF doxycycline hyclate 100 mg capsule 100 mg PO BID Qty: 20 0RF No Action multivitamin with minerals [Hair,Skin and Nails] Tablet 1 tablet PO DAILY turmeric 400 mg capsule 400 mg PO DAILY acetaminophen [Tylenol Extra Strength] 500 mg tablet 500 mg PO Q6H PRN (Reason: Pain) trazodone 50 mg tablet 50 mg PO QHS PRN (Reason: insomnia) Qty: 30 2RF Rx Instructions: may cut in half. atorvastatin 20 mg tablet 20 mg PO DAILY Qty: 90 1RF azithromycin 250 mg tablet See Rx Instructions PO .COMPLEX Qty: 6 0RF Rx Instructions: For 250 mg dose pack: take 500 mg today (day 1), then 250 mg for 4 days (days 2-5) PO Mucinex DM 30-600 mg tablet extended release 12 hr See Rx Instructions PO Q12H PRN (Reason: cough) Qty: 30 0RF Rx Instructions: 1-2 tablest orally every 12 hours PRN; budesonide 0.25 mg/2 mL suspension for nebulization 0.25 mg irrigation BID Qty: 120 3RF Rx Instructions: one vial in each irrigation bottle, irrigate 2x per day nadolol 40 mg tablet 40 mg PO DAILY Qty: 90 1RF omeprazole 40 mg capsule,delayed release(DR/EC) 40 mg PO BID Qty: 180 1RF escitalopram oxalate 20 mg tablet See Rx Instructions .ROUTE .COMPLEX Qty: 90 0RF Dose Instruction: TAKE 1 TABLET BY MOUTH DAILY Rx Instructions: TAKE 1 TABLET BY MOUTH DAILY gabapentin 300 mg capsule See Rx Instructions .ROUTE .COMPLEX Qty: 180 0RF Dose Instruction: TAKE 2 CAPSULES BY MOUTH EVERY DAY AT BEDTIME Rx Instructions: TAKE 2 CAPSULES BY MOUTH EVERY DAY AT BEDTIME Follow-up/Referrals: Karen Guillen APRN [Primary Care Provider] - 1 Week Time of Disposition: 16:35
== END 2024-09-03 16:37 | disposition home or self-care (01) ==
PROVIDERS: Emergency Provider Nurse Practitioner Family; PCP Nurse Practitioner Family
DX: J40 Bronchitis, not specified as acute or chronic (principal); Z87.891 Personal history of nicotine dependence; I48.0 Paroxysmal atrial fibrillation; I10 Essential (primary) hypertension; J44.9 Chronic obstructive pulmonary disease, unspecified; R73.03 Prediabetes; M19.90 Unspecified osteoarthritis, unspecified site; I34.1 Nonrheumatic mitral (valve) prolapse; G25.81 Restless legs syndrome; E78.49 Other hyperlipidemia; Z85.828 Personal history of other malignant neoplasm of skin
CPT/HCPCS: 71046; 99213; G0463

== ENCOUNTER 2024-10-06 12:51 | Outpatient (CLI) | payer MEDICARE, BC, SELFPAY ==
--- OUTSIDE RECORDS SUMMARY | 2024-10-06 12:59 | XMS_ITS | Data Portability ---
Author Organization [facility] [place] Address [address] [place] [address] [place] [address] Assessment Encounter Date Assessment Date Assessment LastModified by Organization Details LastModified Time 07/25/2020 07/25/2020 Annual gynecological exam performed. Patient will come back in a year unless there are new symptoms. [email or web address] Not available 07/25/2020 11:11:45 Plan of Treatment Reminders Order Date Submit Date Provider Last Modified By Organization Details Last Modified Time Details Appointments None recorded. Lab None recorded. Referral None recorded. Procedures None recorded. Surgeries None recorded. Imaging DEXA, axial skeleton + vertebral fracture assessment 2019 020 [facility], [address], [place], [address], 11:35:12 Medication Orders None recorded. Patient TargetsNo targets recorded. Patient Instructions Encounter Date Encounter Id Patient Instructions Last Modified By Organization Details Last Modified Time 07/25/2020 [id number] [email or web address] Not available 11:34:25 Reason for Referral None Reported. Results Created Date Observation Date Name Description Value Unit Range Abnormal Flag Note LastModifiedBy Organization Detail LastModifiedTime 09/22/19 21 MAMMO , scree nancy, bilat eral No observ ation record ed. layran Not Available 2020 15:46:06 01/06/20 21 DEXA, axial skele ton + verte bral fract ure asses sment No observ ation record ed. [email or web address] [facility] [address], [place], [address], 01/12/2021 15:15:50 Result Notes None recorded. Problems Name Problem SNOMED Code Status Onset Date Resolution Date Notes Provider Name and Address Organization Details Recorded Time Microscop ic hematuria 021044540 Active 2010 MICROSCOPI C HEMATURIA; Recorded Elsewhere: No Locatio n: [facility] rce: EHR Chroni c: N Practice ID: 0001 Billa ble Time: 11:30:00 AM Not Available [facility] 0 15:53:17 Evaluatio n finding Active 2017 Hematuria, unspecifie d;Recorded Elsewhere: No Locatio n: [facility] rce: EHR Chroni c: N Practice ID: 0001 Billa ble Time: 12:10:00 PM Not Available [facility] 0 15:53:[address] Concept Active 2017 Encntr for general adult medical exam w/o abnormal findings;R ecorded Elsewhere: No Locatio n: [facility] rce: EHR Chroni c: N Practice ID: 0001 Billa ble Time: 01:00:00 PM Not Available [facility] 0 15:53:17 Specializ ed medical examinati on Active 2014 Gynecologi jomar Examinatio n;Recorded Elsewhere: No Locatio n: [facility] rce: EHR Chroni c: N Practice ID: 0001 Billa ble Time: 03:30:00 PM Not Available [facility] 0 15:53:17 Breathing painful 08634500 Active 2013 Chest wall pain;Recor ded Elsewhere: No Locatio n: [facility] rce: EHR Chroni c: N Practice ID: 0001 Billa ble Time: 01:00:00 PM Not Available [facility] 0 15:53:17 Pain of breast 07598295 Active 2013 Breast pain;Recor ded Elsewhere: No Locatio n: [facility] rce: EHR Chroni c: N Practice ID: 0001 Billa ble Time: 01:00:00 PM Not Available [facility] 0 15:53:[address] Concept Active 2017 Well woman check w/o abnormal finding;Re corded Elsewhere: No Locatio n: [facility] rce: EHR Chroni c: N Practice ID: 0001 Billa ble Time: 01:00:00 PM Not Available [facility] 0 15:53:17 Dysuria 19297565 Active 2017 Dysuria;Re corded Elsewhere: No Locatio n: [facility] rce: EHR Chroni c: N Practice ID: 0001 Billa ble Time: 01:00:00 PM Not Available [facility] 0 15:53:17 Screening for malignant neoplasm of cervix Active 2017 Encounter for screening for malignant neoplasm of cervix;Rec orded Elsewhere: No Locatio n: [facility] rce: EHR Chroni c: N Practice ID: 0001 Billa ble Time: 01:00:00 PM Not Available [facility] 0 15:53:17 Screening for malignant neoplasm of rectum Active 2010 Screening for malignant neoplasms of the rectum;Rec orded Elsewhere: No Locatio n: [facility] rce: EHR Chroni c: N Practice ID: 0001 Billa ble Time: 11:30:00 AM Not Available [facility] 0 15:53:17 Adult health examinati on Active 2014 ROUTINE MEDICAL EXAM;Recor ded Elsewhere: No Locatio n: [facility] rce: EHR Chroni c: N Practice ID: 0001 Billa ble Time: 03:30:00 PM Not Available [facility] 0 15:53:18 Problem Notes None recorded. Procedures Surgical History None recorded. Imaging Results Imaging Date Name Status LastModified by Organiz ation Details LastModified Time 09/22/2020 MAMMO, screening, bilateral completed layran Information not available 09/27/2020 15:46:06 01/05/2021 DEXA, axial skeleton + vertebral fracture [facility] [address], [place], [address], 01/12/2021 15:15:50 Procedure Notes None recorded. Medical Equipment None Reported. Allergies Allergen ID Allergen Name Allergen Category Reaction Reaction Severity Criticality Documentation Date Start Date Code Code System Note Provider Name and Address Organization Details Recorded Time 2804 Product containin g penicilli n and antibioti c (product) medicatio n Not available Not available Not available 07/25/2020 68355 05 ILEANA Shelton [facility] [place] - [facility] 0 11:21:12 Medications Name Sig Start Date Stop Date Status Note LastModified by Organization Details LastModified Time Corgard 20 mg tablet take 1 tablet by oral route every day active Prescrib ed Elsewher e: Yes Loca tion: [facility] odify By: candice tz Encou nter DateTime : 08/11/20 11 10:06:54 AM Not Available Not Available Not Available atorvasta tin 20 mg tablet TAKE 1 TABLET BY MOUTH EVERY DAY 07/25 completed Not Available Not Available Not Available cefaclor 500 mg capsule TK 1 C PO Q 8 H active Not Available Not Available No t Available alprazola m 1 mg tablet take 1 tablet by oral route 3 times every day active Prescrib ed Elsewher e: Yes Loca tion: [facility] odify By: greg rosenbergunter DateTime : 12/11/19 18 01:00:00 PM Not Available Not Available Not Available ondansetr on HCl 4 mg tablet take 2 tablet by oral route every 8 hours for 2 days active Prescrib ed Elsewher e: Yes Loca tion: [facility] odify By: greg rosenberguntluiz DateTime : 12/11/19 18 01:00:00 PM Not Available Not Available Not Available omeprazol e 40 mg capsule,d elayed release TK 1 C PO BID 07/25 completed Not Available Not Available Not Available alprazola m 0.25 mg tablet TAKE 1 TABLET BY MOUTH TWICE A DAY NEEDED FOR ANXIETY active Not Available Not Available No t Available omeprazol e 10 mg capsule,d elayed release TAKE 1 CAPSULE BY MOUTH EVERY DAY active Not Available Not Available No t Available diclofena c 0.1 % eye drops instill 1 drop by ophthalm ic route 4 times every day into affected eye(s) beginnin g within 15 minutes after surgery active Prescrib ed Elsewher e: Yes Loca tion: [facility] odify By: arnie echeverria DateTime : 07/06/20 14 01:00:00 PM Not Available Not Available Not Available gabapenti n 300 mg capsule TK ONE C PO QD PRF RESTLESS LEG 07/25 completed Not Available Not Available Not Available nadolol 40 mg tablet TAKE 1 AND 1/2 TABLETS BY MOUTH ONCE DAILY 07/25 completed Not Available Not Available Not Available zolpidem 5 mg tablet TAKE 1 TABLET BY MOUTH AT BEDTIME NEEDED 07/25 completed Not Available Not Available Not Available gabapenti n 100 mg capsule take 3 capsule by oral route 3 times every day active Prescrib ed Elsewher e: Yes Loca tion: [facility] odify By: candice Lassiter nter DateTime : 08/11/20 11 10:06:54 AM Not Available Not Available Not Available zolpidem 10 mg tablet take 1 tablet by oral route every day at bedtime active Prescrib ed Elsewher e: Yes Loca tion: [facility] odify By: greg rosenbergunter DateTime : 12/11/19 18 01:00:00 PM Not Available Not Available Not Available Lipitor 10 mg tablet take 1 tablet by oral route every day active Prescrib ed Elsewher e: Yes Loca tion: [facility] odify By: candice Lassiter nter DateTime : 08/11/20 11 10:06:54 AM Not Available Not Available Not Available cefaclor 125 mg/5 mL oral suspensio n take 10 millilit er by oral route every 8 hours active Prescrib ed Elsewher e: Yes Loca tion: [facility] odify By: greg Waller ncounter DateTime : 12/11/19 18 01:00:00 PM Not Available Not Available Not Available Bactrim DS 800 mg-160 mg tablet take 1 tablet by oral route every 12 hours 2017 active Prescrib ed Elsewher e: No Locat ion: [facility] odify By: arline echeverria DateTime : 08/04/20 18 12:10:36 PM Not Available Not Available Not Available escitalop micah 10 mg tablet TAKE 1 TABLET BY MOUTH EVERY DAY active Not Available Not Available No t Available acetamino phen active Not Available Not Available Not Available Lipitor active Not Available Not Avail able Not Available Body, Hair, Skin and Nails active Not Available Not Available Not Available Gralise active Not Available Not Avail able Not Available Vitamin B-12 1,000 mcg/mL oral drops active Prescrib ed Elsewher e: Yes Loca tion: [facility] odify By: arnie echeverria DateTime : 07/06/20 14 01:00:00 PM Not Available Not Available Not Available Abaneu-SL 600 mcg-600 mcg sublingua l tablet active Prescrib ed Elsewher e: Yes Loca tion: [facility] odify By: greg alejo DateTime : 12/11/19 18 01:00:00 PM Not Available Not Available Not Available Fluzone High-Dose Quad (PF) 240 mcg/0.7 mL IM syringe PHARMACY ADMINIST ERED 07/25 completed Not Available Not Available Not Available Vitals Date Recorded Body weight Systolic blood pressure Diastolic blood pressure Provider Name and Address Organization Details Last Updated DateTime 07/25/2020 52179.51 g 110 mm[Hg] 69 mm[Hg] Thao Shelton [facility] 07/25/2020 11:21:01 Social History None recorded. Functional Status None recorded. Mental Status None recorded. Family History Nothing Reported Notes:Father: Cancer, colon Maternal grandmother: Cancer, breast Mother: Congenital heart disease Medical History No medical history recorded. Gynecological History Statement/Question Response Current Control Method None Obstetrics History GPAL:G 0 P 0 0 0 0 Past Encounters Encounter ID Performer Location Encounter Start Date Encounter Closed Date Diagnosis/Indication Diagnosis SNOMED-CT Code Diagnosis ICD10 Code Diagnosis Note [id number] Rosalie Paris [facility] [address] [address] 07/25/2020 11:09:32 07/25/2020 11:51:18 Gynecologic examination 35025837 Z01.419 Take Calcium with Vitamin D 12-1500mg daily. Do monthly self breast exams. It is advised to get annual flu shot in the fall and she could obtain at [facility] or [facility] care clinic. If you haven't received the Tdap vaccine in the last 10 years you should obtain one as well. Have mammogram yearly, bone density every 2-3 years and colonoscop y every 5-10 years depending on findings and history. Engage in daily exercise of low impact aerobic exercise 45-60 minutes 4-5 times weekly. Avoid tobacco and illicit drugs as well as using moderation with alcohol intake less than 1-2 8 oz beverages daily. This lifestyle behavior pattern will lead to less health conditions and longer life span. If BMI greater than 25 weight watchers or dietary consult advised. Questions have been answered. Patient appears to understand instructio ns, but if you have any further questions call or respond to this email Mammo ordered Dexa ordered USPSTF recommends against screening for cervical cancer in women older than 65yo who have had adequate prior screening & are not otherwise at high risk for cervical cancer. Last pap 2017 wnl SPouse in longterm. No partner Postmenopa usal osteopenia [id number] M85.80 To find out if PCP has previously ordered as none on file. Gave order in case it has not been completed in a few years. Health Concerns Section Related Observation LastModified by Organization Detai ls LastModified Time None Recorded Concern Status LastModified by Organization Details LastModified Time None Recorded Advance Directives Directive None Recorded Payers Encounter Date Sequence Insurance Name Policy Number Policy Sparks Covered Member ID Sparks Member ID Guarantor Name 07/25/2020 2 [place]) 105 Rajat Shipman [id number] 07/25/2020 1 [place] Barbie Shipman [id number] Notes Date Note Type Note Provider Name and Address Organization Details Recorded Time 07/25/2020 text/html Annual GYNReport ed bypatient.History: no gynecologic complaints Menstrual cycle:postmenopaus e Urinary symptoms:No hematuria; No incontinence Vulva:No genital lesion Vagina:Normal vaginal discharge Breast:No breast pain; No breast lump; No nipple discharge Current Contraception:Not sexually active Sexual complaints:No sexual complaints; No pain during intercourse; Normal libido Menopausal Symptoms:No menopausal symptoms; Normal vaginal lubrication Psychological symptoms:No depression; No anxiety; No PMDD Preventive measures:Encourage self breast examination; Encourage regular exercise; Encourage no tobacco use; Encourage regular mammograms starting age 40; Needs to schedule mammogram; Needs to schedule colonoscopy; Dexa ??? PCP manages Colonoscopy Spouse in longterm. Rosalie Paris, [facility]- [address], [place], [address], [facility] 07/25/2020 11:41:37 OBGyn Episode No OBEpisode recorded.
--- OUTSIDE RECORDS SUMMARY | 2024-10-06 12:59 | XMS_ITS | Referral Summary ---
Author Organization [facility] [address] Address [address] [place] [address] Care Team Providers Care Hydro Plant Technician Name Role Phone Rikki Simon MD Primary Care Provider [phone] Allergies Active Allergy Reactions Criticality Noted Date Comments Adhesive Tape-Silicones Codeine Penicillins Unknown 08/11/2011 Sulfa (Sulfonamide Antibiotics) Medications atorvastatin (LIPITOR) 20 mg tablet take 1 tablet (20MG) by oral route every day 0 10/31/2012 Active gabapentin ER (GRALISE) 300 mg tablet extended release 24 hr take 1 by Oral route 3 times every day 0 11/03/2012 Active omeprazole (PriLOSEC) 40 mg capsule take 1 capsule by oral route every day before a meal 0 0 03/29/2016 Active acetaminophen ER (TYLENOL) 650 mg 8 hr tablet Take 1 tablet (650 mg total) by mouth every 8 (eight) hours as needed for pain Active turmeric root extract 500 mg capsule Take by mouth 2 (two) times a day Active escitalopram (LEXAPRO) 10 mg tablet 1 tablet (10 mg total) daily 08/04/2019 Active multivit-min/ir on/folic/xoo366 (HAIR, SKIN AND NAILS ADVANCED ORAL) Take by mouth Active nadoloL (CORGARD) 40 mg tablet TAKE 1 AND 1/2 TABLETS(60 MG) BY MOUTH DAILY 135 tablet 2 08/10/2024 Active Active Problems Problem Noted Date Diagnosed Date Paroxysmal atrial fibrillation (CMS/HCC) 018 Mitral valve prolapse 07/16/2017 Social History Tobacco Use Types Packs/Day Years Used Date Smoking Tobacco: Never Smokeless Tobacco: Never Tobacco Cessation:Counseling Given: Not Answered Alcohol Use Standard Drinks/Week Comments No 0 (1 standard drink = 0.6 oz pur e alcohol) Personal Safety Answer Date Recorded Getting School Help Needed Not on file 08/14 Comments Unknown Sex and Gender Information Value Date Recorded Sex Assigned at Not on file 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 Gender Identity Not on file Sexual Orientation Not on file Last Filed Vital Signs Vital Sign Reading Time Taken Comments Blood Pressure 110/62 03/03/2024 8:04 AM CDT Pulse 60 03/03/2024 8:04 AM CDT Temperature - - Respiratory Rate - - Oxygen Saturation 95% 03/03/2024 8:04 AM CDT Inhaled Oxygen Concentration - - Weight 95 kg (209 lb 6.4 oz) 03/03/2024 8:04 AM CDT Height 160 cm (5' 3 ) 03/03/2024 8:04 AM CDT Body Mass Index 37.09 03/03/2024 8:04 AM CDT Plan of Treatment Not on file Insurance MEDICARE MEDICARE [facility] FEDERAL Care Teams Hydro Plant Technician Relationship Specialty Start Date End Date Rikki Simon MD PCP - General Family Practice 08/15/23
--- OUTSIDE RECORDS SUMMARY | 2024-10-06 12:59 | XMS_ITS | Clinical Summary ---
Author Organization [facility] [address] Address [address] [place] [address] Care Team Providers Care Financial Reporting Consultant Name Role Phone Rikki Simon MD Primary Care Provider [phone] Allergies Active Allergy Reactions Criticality Noted Date [...] (10 mg total) daily 08/04/2019 Active multivit-min/ir on/folic/rju528 (HAIR, SKIN AND NAILS ADVANCED ORAL) Take by mouth Active nadoloL (CORGARD) 40 mg tablet TAKE 1 AND 1/2 TABLETS(60 MG) BY MOUTH DAILY 135 tablet 2 08/10/2024 Active Active Problems Problem Noted Date Diagnosed Date Paroxysmal atrial fibrillation (CMS/HCC) 018 Mitral valve prolapse 07/16/2017 Medical History Medical History Date Comments Nonrheumatic mitral (valve) prolapse Family History Medical History Relation Name Comments Hypertension Mother 2 Hypertension; Transient ischemic attack Mother 2 Tr ansient ischemic attack; Relation Name Status Comments Mother 1 Alive Mother 2 Social History Tobacco Use Types Packs/Day Years [...] on file 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 Gender Identity Not on file Sexual Orientation Not on file Obstetrics History Last Filed Vital Signs Vital Sign Reading [...] 03/03/2024 8:04 AM CDT Plan of Treatment Health Maintenance Due Date Last Done Comments Depression Screening 1937 Fall Risk Assessment 1937 Hepatitis B Screening 1955 Pneumococcal vaccine 65+ (1 of 1 - PCV) 2002 Well Visit 65+ 2002 Zoster Vaccine (2 of 2) 06/30/2019 05/05/2019 Covid-19 Vaccine (3 - season) 2024, 09/28/2020 Influenza Vaccine (#1) 2024 06/02/2014, 2011 DTaP/Tdap/Td Vaccine (2 - Td or Tdap) 01/07/202604/2016 Insurance MEDICARE MEDICARE [facility] Care Teams Financial Reporting Consultant Relationship Specialty Start Date End Date Rikki Simon MD PCP - General Family Practice 08/15/23
--- OUTSIDE RECORDS SUMMARY | 2024-10-06 12:59 | XMS_ITS | Clinical Summary ---
Author Organization [facility] [employer] Address [address] [place] [address] Care Team Providers Care Advanced Registered Nurse Name Role Phone Giles Olsen MD Primary Care Provider [phone] Source Comments [facility] [employer]non-owned Affiliates and Associated Physician Practices is amultiple site organization consisting of ambulatory clinics and hospital sitesin [place], [place], [place] and [place]. This disclosure is being madepursuant to the Care Everywhere program and may not contain all information available regarding this patient. Last updated 18.[facility] [employer] Immunizations Name Administration Dates Next Due Covid Pfizer primary monoval ent 12+ yr 0.3mL Purple cap 10/19/2020,09/28/2020 Social History Tobacco Use Types Packs/Day Years Used Date Smoking Tobacco: Never Assessed Sex and Gender Information Value Date Recorded Sex Assigned at Not on file Gender Identity Not on file Sexual Orientation Not on file Plan of Treatment Health Maintenance Due Date Last Done Comments BONE DENSITY TESTING 1935 MEDICARE AWV ? 12 MONTHS 1935 DTAP/TDAP/TD VACCINES (1 - Tdap) 1956 PNEUMOCOCCAL VACCINE 50+ (1 of 1 - PCV) 1987 ZOSTER VACCINE (1 of 2) 1987 Respiratory Syncytial Virus (RSV) Vaccine Pt: or over 60 yrs (1 - 1-dose 75+ series) 2012 COVID-19 VACCINE (3 - 2023-2 5 season) 2024 10/19/2020, 09/28/2020 INFLUENZA VACCINE (#1) 2024 DEPRESSION SCREENING 09/02/2024 HEPATITIS B VACCINE Aged Out No longe r eligible based on patient's age to complete this topic HIB VACCINE Aged Out No longer eligi ble based on patient's age to complete this topic HPV VACCINE Aged Out No longer eligi ble based on patient's age to complete this topic MENINGOCOCCAL (Group B) VACCINE Aged Out No longer eligible b ased on patient's age to complete this topic MENINGOCOCCAL VACCINE Aged Out No car jefferson eligible based on patient's age to complete this topic Care Teams Advanced Registered Nurse Relationship Specialty Start Date End Date Giles Olsen MD [address] [place] [id number] PCP - General 12/31/17
--- OUTSIDE RECORDS SUMMARY | 2024-10-06 12:59 | XMS_ITS | Referral Summary ---
Author Organization [facility] [employer] Address [address] [place] [address] Care Team Providers Care Photo Tube Assembler Name Role Phone Giles Olsen MD Primary Care Provider [phone] Source Comments [facility] [employer],non-owned Affiliates and Associated Physician Practices is amultiple site organization consisting of ambulatory clinics and hospital sitesin [place], [place], [place] and [place]. This disclosure is being madepursuant to the Care Everywhere program and may not contain all information available regarding this patient. Last updated 18.[facility] [employer] Immunizations Name Administration Dates Next Due Covid Pfizer primary monoval ent 12+ yr 0.3mL Purple cap 10/19/2020,09/28/2020 Social History Tobacco Use Types Packs/Day Years Used Date Smoking Tobacco: Never Assessed Sex and Gender Information Value Date Recorded Sex Assigned at Not on file Gender Identity Not on file Sexual Orientation Not on file Plan of Treatment Not on file Care Teams Photo Tube Assembler Relationship Specialty Start Date End Date Giles Olsen MD [address] [place] [address] PCP - General 12/31/17
--- OUTSIDE RECORDS SUMMARY | 2024-10-06 12:59 | XMS_ITS | Patient Health Summary ---
Author Organization [facility] Address [address] [place] [address] Care Team Providers Care Broadcast Operations Engineer Name Role Phone Giles Olsen MD Primary Care Provider [phone] Note from [facility],non-owned Affiliates and Associated Physician Practices is amultiple site organization consisting of ambulatory clinics and hospital sitesin [place], [place], [place] and [place]. This disclosure is being madepursuant to the Care Everywhere program and may not contain all information available regarding this patient. Last updated 18.[facility] Immunizations * Covid Pfizer primary monovalent 12+ yr 0.3mL Purple cap(Given 10/19/2020, 09/28/2020) Social History Tobacco Use Types Packs/Day Years Used Date Smoking Tobacco: Never Assessed Sex and Gender Information Value Date Recorded Sex Assigned at Not on file Gender Identity Not on file Sexual Orientation Not on file Procedures * GROSS + MICRO EXAM(Performed 09/24/1996) Results * GROSS + MICRO EXAM (09/24/1996 1:06 PM ROLLS BAKER) Result CASE NUMBER [id number] Comment: ORDERING PHYSICIAN ??RADHA BANUELOS SPECIMEN TYPE ?Gallbladder Date ? 09/24/1996 Physician ?Ken Banuelos Description ? Received in a formalin filled container labeled gallbladder . Received is a 6.2 cm in length x 2.5 cm in diameter saccular shaped gallbladder. ??The serosal surface is smooth and glistening. ??The gallbladder is an uniform 0.2 cm thick. ??The mucosa is bile stained and the lumen is distended with bile. ??There is a 0.9 x 1.3 x 0.8 cm oval yellow green stone. ??The section of the gallbladder wall and cystic duct is submitted in one cassette. ??PG/kn Microscopic Exam ? Sections of the gallbladder show pigmented gallbladder mucosa with mild chronic inflammation and Rokitansky-Aschoff sinuses. ??No dysplasia or malignancy is seen. ?? Diagnosis ? I. ??Gallbladder, cholecystectomy ? A. ??Chronic cholecystitis and cholelithiasis. *Snomed Code 1 ? E56410 - A72656, K10017 Care Companion ? bk Pathologist ?Brett Perez M.D. MISCELLANEOUS SAMPLES / Unknown 09/24/1996 1:06 PM ROLLS BAKER 09/24/1996 1:06 PM ROLLS BAKER Historical Provider LAB - PATHOLOGY/C YTOLOGY ORDERABLES Care Teams Broadcast Operations Engineer Relationship Specialty Start Date End Date Giles Olsen MD [address] [place] [address] PCP - General 12/31/17
[2024-10-06 13:35] LABS: Basophils Percent Auto 0.7 % (0.2-1.2); Eosinophils Absolute Auto 0.2 K/mm3 (0-0.3); Eosinophils Percent Auto 3.9 % (0-4.4); Hematocrit 41.2 % (37.0-47.0); Hemoglobin 13.2 g/dL (12.0-15.0); Immature Granulocyte Absolute 0.01 K/mm3 (0.00-0.031); Immature Granulocyte Percent A 0.2 % (0-0.5); Lymphocytes Absolute Auto 2.05 K/mm3 (0.9-3.2); Mean Corpuscular Hemoglobin 29.7 pg (26-34); Mean Corpuscular Volume 92.8 fl (80-100); Mean Platelet Volume 10.7 fl (7.4-10.4); Monocytes Absolute Auto 0.6 K/mm3 (0.1-0.6); Monocytes Percent Auto 9.4 % (2.6-8.5); Neutrophils Percent Auto 50.8 % (45.5-73.1); Platelet Count Result 268 k/mm3 (150-375); Red Blood Count 4.44 M/mm3 (4.2-5.4); Red Cell Distribution Width 14.6 % (11.5-14.5); White Blood Count 5.9 K/mm3 (4.5-10.0)
[2024-10-06 16:04] LABS: Alanine Aminotransferase 18 U/L (6-35); Alkaline Phosphatase 77 U/L (38-126); Anion Gap 13 mmol/L (4-12); Aspartate Amino Transferase 25 U/L (14-36); Bilirubin,Total 0.8 mg/dL (0.2-1.3); Blood Urea Nitrogen 15 mg/dL (7-17); Carbon Dioxide 21 mmol/L (22-30); Chloride 107 mmol/L (98-107); Cholesterol 160 mg/dL (0-200); Estimated Glomerular Filt Rate 37; Glucose 97 mg/dL (65-110); HDL Direct 43 mg/dL; Potassium 4.4 mmol/L (3.4-5.0); Sodium 141 mmol/L (137-145); Triglycerides 106 mg/dL (<150)
[2024-10-06 16:14] LABS: LDL Cholesterol Direct 86 mg/dL
[2024-10-06 21:17] LABS: Hemoglobin A1C 6.3 % (<5.7)
== END 2024-10-06 12:52 | disposition home or self-care (01) ==
LOC: ANHLAB 12:53
PROVIDERS: PCP Nurse Practitioner Family; Visit Provider Nurse Practitioner Family
DX: F41.9 Anxiety disorder, unspecified (principal); I10 Essential (primary) hypertension; E78.5 Hyperlipidemia, unspecified; R73.03 Prediabetes; R79.89 Other specified abnormal findings of blood chemistry
CPT/HCPCS: 36415; 80053; 80061; 83036; 85025

== ENCOUNTER 2024-10-14 08:44 | Outpatient (CLI) | payer MEDICARE, BC, SELFPAY ==
--- NOTE | ~2024-10-14 | US_ITS ---
Limited Abdominal Sonogram: Real-time sonographic imaging of the right upper quadrant was performed. Clinical History: Abdominal pain Findings: The liver appears normal with no evidence of mass lesion or bile duct dilatation. Main por colt vein demonstrates normal direction of flow. The gallbladder is absent, compatible prior cholecyst ectomy. The common bile duct measures 7 mm. The visualized pancreas, aorta, and IVC are unremarkable . Impression: No significant abnormality seen. Reviewed, dictated and finalized at location M. WASH ATTENDANT Impression: No significant abnormality seen.
--- NOTE | ~2024-10-14 | US_ITS ---
EXAMINATION: US renal BI DATE: 10/14/2024 10:37 INDICATION: Stage III chronic kidney disease TECHNIQUE: Multiple ultrasound grayscale images of the kidneys were obtained. COMPARISON: CT dated 10/17/2023 FINDINGS: The right kidney measures 11.6 x 4.3 x 3.8 cm. The left kidney measures 12.1 x 5.3 x 5.0 cm. The kidn eys demonstrate normal echogenicity. Are multiple bilateral anechoic renal cysts the largest on the r ight measuring up to 3.2 cm in maximal diameter and the largest on the left measuring up to 6.0 cm. T here is no hydronephrosis in either kidney. No stones identified. The bladder appears unremarkable b ut is partially decompressed which somewhat limits evaluation. A left-sided ureteral jet is visualize d on color Doppler. IMPRESSION: 1. Multiple bilateral renal cysts. Otherwise normal kidneys without hydronephrosis. Reviewed, dictated and finalized at location A. TTING COORDINATOR IMPRESSION: 1. Multiple bilateral renal cysts. Otherwise normal kidneys without hydronephr osis.
--- OUTSIDE RECORDS SUMMARY | 2024-10-14 09:12 | XMS_ITS | Referral Summary ---
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
--- OUTSIDE RECORDS SUMMARY | 2024-10-14 09:12 | XMS_ITS | Patient Health Summary ---
Author Organization [facility] Address [address] [place] [address] Care Team Providers Care Manager Printing Name Role Phone Giles Olsen MD Primary Care Provider [phone] Note from [facility],non-owned Affiliates and Associated Physician Practices is amultiple site organization consisting of ambulatory clinics and hospital sitesin [place], [place], [place] and [place]. This disclosure is being madepursuant to the Care Everywhere program and may not contain all information available regarding this patient. Last updated 18.[facility] Immunizations * Covid Pfizer primary monovalent 12+ [...] GROSS + MICRO EXAM (09/24/1996 1:06 PM CLICKING MACHINE OPERATOR) Result CASE NUMBER [id number] Comment: ORDERING PHYSICIAN RADHA BANUELOS SPECIMEN TYPE Gallbladder Date 09/24/1996 Physician Ken Banuelos Gross Description Received in a formalin filled container labeled gallbladder . Received is a 6.2 cm in length x 2.5 cm in diameter saccular shaped gallbladder. The serosal surface is smooth and glistening. The gallbladder is an uniform 0.2 cm thick. The mucosa is bile stained and the lumen is distended with bile. There is a 0.9 x 1.3 x 0.8 cm oval yellow green stone. The section of the gallbladder wall and cystic duct is submitted in one cassette. PG/kn Microscopic Exam Sections of the gallbladder show pigmented gallbladder mucosa with mild chronic inflammation and Rokitansky-Aschoff sinuses. No dysplasia or malignancy is seen. Diagnosis I. Gallbladder, cholecystectomy A. Chronic cholecystitis and cholelithiasis. *Snomed Code 1 V67350 - Q50743, M49267 Software Project Lead bk Pathologist Brett Perez M.D. MISCELLANEOUS SAMPLES / Unknown 09/24/1996 1:06 PM CLICKING MACHINE OPERATOR 09/24/1996 1:06 PM CLICKING MACHINE OPERATOR Historical Provider MD LAB - PATHOLOGY/C YTOLOGY ORDERABLES Care Teams Manager Printing Relationship Specialty Start Date End Date Giles Olsen MD [address] [place] [address] PCP - General 12/31/17
--- OUTSIDE RECORDS SUMMARY | 2024-10-14 09:12 | XMS_ITS | Clinical Summary ---
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
--- OUTSIDE RECORDS SUMMARY | 2024-10-14 09:12 | XMS_ITS | Referral Summary ---
Author Organization [facility] Address [address] [place] [address] Care Team Providers Care Cylinder Press Operator Apprentice Name Role Phone Giles Olsen MD Primary Care Provider [phone] Source Comments [facility],non-owned Affiliates and Associated Physician Practices is amultiple site organization consisting of ambulatory clinics and hospital sitesin [place], [place], [place] and [place]. This disclosure is being madepursuant to the Care Everywhere program and may not contain all information available regarding this patient. Last updated 18.[facility] Immunizations Name Administration Dates Next Due Covid Pfizer primary monoval ent 12+ yr 0.3mL Purple cap 10/19/2020,09/28/2020 Social History Tobacco Use Types Packs/Day Years Used Date Smoking Tobacco: Never Assessed Sex and Gender Information Value Date Recorded Sex Assigned at Not on file Gender Identity Not on file Sexual Orientation Not on file Plan of Treatment Not on file Care Teams Cylinder Press Operator Apprentice Relationship Specialty Start Date End Date Giles Olsen MD [address] [place] [address] PCP - General 12/31/17
--- OUTSIDE RECORDS SUMMARY | 2024-10-14 09:12 | XMS_ITS | Data Portability ---
Author Organization [facility] [place] Address [address] [place] [address] Assessment Encounter Date Assessment Date Assessment LastModified [...] skeleton + vertebral fracture assessment 2019 020 [facility], [address], [place], [address], 11:35:12 Medication Orders None recorded. Patient TargetsNo targets recorded. Patient Instructions Encounter Date Encounter Id Patient Instructions Last Modified By Organization Details Last Modified Time 07/25/2020 [id number] [email or web address] Not available 11:34:25 Reason for Referral None Reported. Results Created Date Observation Date Name Description Value Unit Range Abnormal Flag Note LastModifiedBy Organization Detail LastModifiedTime 09/22/19 21 MAMMO , scree nancy, bilat eral No observ ation record ed. layran Not Available 2020 15:46:06 01/06/20 21 DEXA, axial skele ton + verte bral fract ure asses sment No observ ation record ed. aruehrup [facility] [address], [place], [address], 01/12/2021 15:15:50 Result Notes None recorded. Problems Name Problem SNOMED Code Status Onset Date Resolution Date Notes Provider Name and Address Organization Details Recorded Time Microscop ic hematuria 141186173 Active 2010 MICROSCOPI C HEMATURIA; Recorded Elsewhere: No Locatio n: [facility] rce: EHR Chroni c: N Practice ID: 0001 Billa ble Time: 11:30:00 AM Not Available [facility] 0 15:53:17 Evaluatio n finding Active 2017 Hematuria, unspecifie d;Recorded Elsewhere: No Locatio n: [facility] rce: EHR Chroni c: N Practice ID: 0001 Billa ble Time: 12:10:00 PM Not Available [facility] 0 15:53:[address] Concept Active 2017 Encntr for general adult medical exam w/o abnormal findings;R ecorded Elsewhere: No Locatio n: [facility] rce: EHR Chroni c: N Practice ID: 0001 Billa ble Time: 01:00:00 PM Not Available [facility] 0 15:53:17 Specializ ed medical examinati on Active 2014 Gynecologi jomar Examinatio n;Recorded Elsewhere: No Locatio n: [facility] rce: EHR Chroni c: N Practice ID: 0001 Billa ble Time: 03:30:00 PM Not Available [facility] 0 15:53:17 Breathing painful 57125854 Active 2013 Chest wall pain;Recor ded Elsewhere: No Locatio n: [facility] rce: EHR Chroni c: N Practice ID: 0001 Billa ble Time: 01:00:00 PM Not Available [facility] 0 15:53:17 Pain of breast 61376791 Active 2013 Breast pain;Recor ded Elsewhere: No Locatio n: [facility] rce: EHR Chroni c: N Practice ID: 0001 Billa ble Time: 01:00:00 PM Not Available [facility] [address] 15:53:[address] Concept Active 2017 Well woman check w/o abnormal finding;Re corded Elsewhere: No Locatio n: [facility] rce: EHR Chroni c: N Practice ID: 0001 Billa ble Time: 01:00:00 PM Not Available [facility] 0 15:53:17 Dysuria 19312968 Active 2017 Dysuria;Re corded Elsewhere: No Locatio n: [facility] rce: EHR Chroni c: N Practice ID: 0001 Billa ble Time: 01:00:00 PM Not Available [facility] 0 15:53:17 Screening for malignant neoplasm of cervix Active 2017 Encounter for screening for malignant neoplasm of cervix;Rec orded Elsewhere: No Locatio n: [facility] rce: EHR Chroni c: N Practice ID: 0001 Billa ble Time: 01:00:00 PM Not Available [facility] 0 15:53:17 Screening for malignant neoplasm of rectum Active 2010 Screening for malignant neoplasms of the rectum;Rec orded Elsewhere: No Locatio n: [facility] rce: EHR Chroni c: N Practice ID: 0001 Billa ble Time: 11:30:00 AM Not Available [facility] 0 15:53:17 Adult health examinati on Active 2014 ROUTINE MEDICAL EXAM;Recor ded Elsewhere: No Locatio n: [facility] rce: EHR Chroni c: N Practice ID: 0001 Billa ble Time: 03:30:00 PM Not Available [facility] 0 15:53:18 Problem Notes None recorded. Procedures Surgical History None recorded. Imaging Results Imaging Date Name Status LastModified by Organiz ation Details LastModified Time 09/22/2020 MAMMO, screening, bilateral completed layran Information not available 09/27/2020 15:46:06 01/05/2021 DEXA, axial skeleton + vertebral fracture [facility] [address], [place], [address], 01/12/2021 15:15:50 Procedure Notes None recorded. Medical Equipment None Reported. Allergies Allergen ID Allergen Name Allergen Category Reaction Reaction Severity Criticality Documentation Date Start Date Code Code System Note Provider Name and Address Organization Details Recorded Time 2804 Product containin g penicilli n and antibioti c (product) medicatio n Not available Not available Not available 07/25/2020 99008 05 ILEANA Shelton [facility] [place] - [facility] 0 11:21:12 Medications Name Sig Start Date Stop Date Status Note LastModified by Organization Details LastModified Time Corgard 20 mg tablet take 1 tablet by oral route every day active Prescrib ed Elsewher e: Yes Loca tion: [facility] odify By: candice tz Encou nter DateTime [...] Prescrib ed Elsewher e: Yes Loca tion: [facility] odify By: greg rosenbergunter DateTime : 12/11/19 18 01:00:00 PM Not Available Not Available Not Available ondansetr on HCl 4 mg tablet take 2 tablet by oral route every 8 hours for 2 days active Prescrib ed Elsewher e: Yes Loca tion: [facility] odify By: greg rosenberguntluiz DateTime : 12/11/19 [...] Elsewher e: Yes Loca tion: [facility] odify By: arnie echeverria DateTime : 07/06/20 [...] Elsewher e: Yes Loca tion: [facility] odify By: candice Lassiter nter DateTime : 08/11/20 11 10:06:54 AM Not Available Not Available Not Available zolpidem 10 mg tablet take 1 tablet by oral route every day at bedtime active Prescrib ed Elsewher e: Yes Loca tion: [facility] odify By: greg rosenbergunter DateTime : 12/11/19 18 01:00:00 PM Not Available Not Available Not Available Lipitor 10 mg tablet take 1 tablet by oral route every day active Prescrib ed Elsewher e: Yes Loca tion: [facility] odify By: candice Lassiter nter DateTime : 08/11/20 11 10:06:54 AM Not Available Not Available Not Available cefaclor 125 mg/5 mL oral suspensio n take 10 millilit er by oral route every 8 hours active Prescrib ed Elsewher e: Yes Loca tion: [facility] odify By: greg Waller ncounter DateTime : 12/11/19 18 01:00:00 PM Not Available Not Available Not Available Bactrim DS 800 mg-160 mg tablet take 1 tablet by oral route every 12 hours 2017 active Prescrib ed Elsewher e: No Locat ion: [facility] odify By: arline echeverria DateTime : 08/04/20 [...] Prescrib ed Elsewher e: Yes Loca tion: [facility] odify By: arnie echeverria DateTime : 07/06/20 14 01:00:00 PM Not Available Not Available Not Available Abaneu-SL 600 mcg-600 mcg sublingua l tablet active Prescrib ed Elsewher e: Yes Loca tion: [facility] odify By: greg alejo DateTime : 12/11/19 18 01:00:00 PM Not Available Not Available Not Available Fluzone High-Dose Quad (PF) 240 mcg/0.7 mL IM syringe PHARMACY ADMINIST ERED 07/25 completed Not Available Not Available Not Available Vitals Date Recorded Body weight Systolic blood pressure Diastolic blood pressure Provider Name and Address Organization Details Last Updated DateTime 07/25/2020 14606.51 g 110 mm[Hg] 69 mm[Hg] Thao Shelton [facility] 07/25/2020 11:21:01 Social History None recorded. [...] SNOMED-CT Code Diagnosis ICD10 Code Diagnosis Note [id number] Rosalie Paris [facility] [address] [address] 07/25/2020 11:09:32 07/25/2020 11:51:18 Gynecologic examination 51075580 Z01.419 Take Calcium with Vitamin D 12-1500mg daily. Do monthly self breast exams. It is advised to get annual flu shot in the fall and she could obtain at [facility] or [facility] care clinic. If you haven't received the [...] cancer. Last pap 2017 wnl SPouse in assisted. No partner Postmenopa usal osteopenia [id number] M85.80 To find out if PCP has [...] FEDERAL EMPLOYEE PROGRAM (PPO) 105 Rajat Shipman [id number] 07/25/2020 1 [place]ICARE-[place] (MEDICARE) Barbie Shipman [id number] Notes Date Note Type Note Provider [...] Dexa ??? PCP manages Colonoscopy Spouse in assisted. Rosalie Paris, [facility]- [address] [place], [address], [facility] 07/25/2020 11:41:37 OBGyn Episode No OBEpisode recorded.
--- OUTSIDE RECORDS SUMMARY | 2024-10-14 09:12 | XMS_ITS | Clinical Summary ---
Author Organization [facility] Address [address] [place] [address] Care Team Providers Care Is Analyst Name Role Phone Giles Olsen MD Primary Care Provider [phone] Source Comments [facility],non-owned Affiliates and Associated Physician Practices is amultiple site organization consisting of ambulatory clinics and hospital sitesin [place], [place], [place] and [place]. This disclosure is being madepursuant to the Care Everywhere program and may not contain all information available regarding this patient. Last updated 18.[facility] Immunizations Name Administration Dates Next Due Covid [...] Comments BONE DENSITY TESTING 1935 MEDICARE AWV 12 MONTHS 1935 DTAP/TDAP/TD VACCINES (1 - [...] age to complete this topic Care Teams Is Analyst Relationship Specialty Start Date End Date Giles Olsen MD [address] [place] [address] PCP - General 12/31/17
== END 2024-10-14 08:45 | disposition home or self-care (01) ==
PROVIDERS: Visit Provider Nurse Practitioner Family
DX: N28.1 Cyst of kidney, acquired (principal); N18.30 Chronic kidney disease, stage 3 unspecified; Z90.49 Acquired absence of other specified parts of digestive tract
CPT/HCPCS: 76705; 76775

== ENCOUNTER 2025-01-28 02:12 | Day surgery (SDC) | payer MEDICARE, BC, SELFPAY ==
[2025-01-27 09:37] VITALS: BMI 34.0
[2025-01-28] VITALS (14 sets, daily range): BP systolic 114–154; BP diastolic 43–64; PULSE 52–60; RESP 13–22; TEMP 36.3; O2SAT 91–97; BMI 35.3
--- OUTSIDE RECORDS SUMMARY | 2025-01-28 02:15 | XMS_ITS | Encounter Summary ---
Author Organization [facility] Address [address] [place] [address] Care Team Providers Care Clean Energy Policy Analyst Name Role Phone Karen Guillen NP Primary Care Provider [phone] Encounter Details Date Type Department Care Team (Late st Contact Info) Description 01/15/2025 Results Follow-Up [facility] Cardiology [address] [place] [address] Inida Hatfield NP [address] [place], [place] [id number] [place] MPI SPECT (Rest and/or Stress) Multiple Studies Social History Tobacco Use Types Packs/Day Years Used Date Smoking Tobacco: Never Smokeless Tobacco: Never Alcohol Use Standard Drinks/Week Comments No 0 (1 standard drink = 0.6 oz pur e alcohol) Comments Unknown Sex and Gender Information Value Date Recorded Sex Assigned at Not on file 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
--- OUTSIDE RECORDS SUMMARY | 2025-01-28 02:15 | XMS_ITS | Clinical Summary ---
Author Organization [facility] [address] Address [address] [place] [address] Care Team Providers Care Customer Strategy Manager Name Role Phone Karen Guillen NP Primary Care Provider Allergies Active Allergy Reactions Criticality Noted Date Comments Adhesive Tape-Silicones Codeine Penicillins Unknown 08/11/2011 Sulfa (Sulfonamide Antibiotics) Medications atorvastatin (LIPITOR) 20 mg tablet take 1 tablet (20MG) by oral route every day 0 3 Active omeprazole (PriLOSEC) 40 mg capsule take 1 capsule by oral route every day before a meal 0 0 6 Active acetaminophen ER (TYLENOL) 650 mg 8 hr tablet Take 1 tablet (650 mg total) by mouth every 8 (eight) hours as needed for pain Active turmeric root extract 500 mg capsule Take by mouth 2 (two) times a day Active escitalopram (LEXAPRO) 10 mg tablet 1 tablet (10 mg total) daily 9 Active multivit-min/ir on/folic/rlt228 (HAIR, SKIN AND NAILS ADVANCED ORAL) Take by mouth Active nadoloL (CORGARD) 40 mg tablet TAKE 1 AND 1/2 TABLETS(60 MG) BY MOUTH DAILY 135 tablet 2 4 Active gabapentin (NEURONTIN) 300 mg capsule Take 2 capsules (600 mg total) by mouth nightly 5 Active gabapentin ER (GRALISE) 300 mg tablet extended release 24 hr take 1 by Oral route 3 times every day 0 3 01/09/20 25 Discontinu ed(Alterna te therapy) Hospital, Clinic, or Other Facility Administered Medication Ordered Dose Route Frequency Start Date End Date Status aminophylline 250 mg/10 mL injection 100 mgIndications:Chest pain, unspecified type 100 mg IV Once 01/14/2025 01/14/2025 Ended Active Problems Problem Noted Date Diagnosed Date Paroxysmal atrial fibrillation 01/21/2018 Mitral valve prolapse 07/16/2017 Encounters Date Type Department Care Team Description 01/15/2025 Telephone [facility] Cardiology [address] [place] [address] [place] [phone] India Tucker NP 01/15/2025 Results Follow-Up [place] [address] [place] [phone] India Tucker NP NM MPI SPECT (Rest and/or Stress) Multiple Studies 01/14/2025 8:15 AM CDT Ancillary Procedure [facility] Cardiology [address] [place] [address] [place] [phone] Chest pain, unspecified type 01/08/2025 10:00 AM CDT Office Visit [place] [address] [place] [phone] India Tucker NP Chest pain, unspecified type (Primary Dx) 01/05/2025 Telephone [place] [address] [place] [phone] Edwin Foley MD from Last 3 Months Medical History Medical History Date Comments Nonrheumatic [...] on file Legal 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 Gender Identity Not on file Sexual Orientation Not on file Obstetrics History Last Filed Vital Signs Vital Sign Reading Time Taken Comments Blood Pressure 112/60 01/08/2025 10:03 AM CDT Pulse 70 01/08/2025 10:03 AM CDT Temperature - - Respiratory Rate - - Oxygen Saturation 93% 01/08/2025 10:03 AM CDT Inhaled Oxygen Concentration - - Weight 91.2 kg (201 lb) 01/08/2025 10:03 AM CDT Height 160 cm (5' 3) 01/08/2025 10:03 AM CDT Body Mass Index 35.61 01/08/2025 10:03 AM CDT Plan of Treatment Health Maintenance Due Date Last Done Comments Depression Screening 1935 Fall Risk Assessment 1935 Hepatitis B Screening 1955 Pneumococcal vaccine 65+ (1 of 1 - PCV) 1987 Well Visit 65+ 2002 Zoster Vaccine (2 of 2) 06/30/2019 05/05/2019 Covid-19 Vaccine ( season) 2024, 09/28/2020 Influenza Vaccine (Season Ended) 2025 06/02/20 14, 07/12/2012 DTaP/Tdap/Td Vaccine (2 - Td or Tdap) 01/07/202604/2016 Procedures Procedure Name Priority Date/Time Associated Diagnosis Comments NM MPI SPECT (REST AND/OR STRESS) MULTIPLE STUDIES Schedule Routine, Read Routine (OP Routine) 01/14/2025 9:59 AM CDT Chest pain, unspecified type ECG 12-LEAD Routine 01/08/2025 Chest pain, unspecified type from Last 3 Months Results * NM MPI SPECT (Rest and/or Stress) Multiple Studies (01/14/2025 9:59 AM CDT) Anatomical Region Laterality Modality Body N/A Nuclear Medicine 01/14/2025 8:22 AM CDT Narrative 01/14/2025 4:[address] [facility] Cardiology [address], [place] [address] [address], [address], [place] [address] P:[phone] P:[phone] MPI Imaging Report Patient Name: BARBIE SHIPMAN M : 1935 Study Date: 01/14/2025 8:22:58 AM Gender: F Tech: [facility] Location: [facility] Provider: INDIA TUCKER Height(Cm): 160 BSA: Weight(Kg): 91.2 BMI: 35.62 Order Provider: INDIA TUCKER PHYSICIAN: Referring Physician: Karen Guillen NP. HCG Physician: Edwin Foley M.D.,F.A.C.C. Interpreting Physician: Ashok Baxter M.D. Stress Supervision: Ashok Baxter M.D. PROCEDURES: Pharmacologic SPECT Report: Myocardial perfusion imaging with Tc99M Sestamibi SPECT at rest and stress post regadenoson (Lexiscan) infusion. INDICATIONS: High Cholesterol, Palpitations, and R07.9 Chest pain, unspecified. FINDINGS: Procedural Findings: One day rest/stress was used. Tc99m Sestamibi injected IV at rest was 12.9 millicuries 37.4 millicuries of Tc99M Sestamibi injected IV during Lexiscan stress Lexiscan 0.4mg administered IV over 10 seconds. Pharmacologic stress related symptoms and/or side effects during infusion include nausea. Symptoms were resolved with 100 mg of aminophylline IVP. Baseline heart rate was 57 BPM Maximum Heart Rate Achieved was: 81 BPM Baseline blood pressure was 134/72 mmHg Post Stress Blood Pressure was 136/70 mmHg Termination: Protocol complete. Resting ECG: Normal sinus rhythm. Nonspecific T wave abnormality. Cannot r/o anterior infarct - age uncertain. Post ECG: No diagnostic ST changes. Arrhythmia: No arrhythmias seen. Perfusion Findings: Abnormal perfusion imaging - see below. Technical quality of study is excellent. Prone imaging was not performed. Left ventricle cavity size at rest is normal. Left ventricle cavity size with stress is unchanged. A TID of 0.91 was automatically calculated. defect 1: Size is medium. Severity is moderate. Location of defect is in the mid anterior segment, mid anterolateral segment, apical anterior segment and apical lateral segment. Reversibility is full. Type of defect is ischemia. LV Function: Global left ventricular function is normal. Left ventricular ejection fraction is 69 %. CONCLUSIONS: Global left ventricular function is normal. Left ventricular ejection fraction is 69 %. Myocardial perfusion imaging is abnormal for moderate anterior/anterolateral ischemia. No infarction. Breast attenuation artifact is also noted but prone imaging not performed. Negative EKG portion of stress test. Electronically Signed By: Reuben Baxter MD 01/14/2025 4:20:41 PM CDT Electronically Signed By: Reuben Baxter MD 01/14/2025 4:20:41 PM CDT Procedure Note Reuben Baxter MD - 01/14/2025 [facility] Cardiology [address] [facility] [address] [id number] [address] [facility] [address], [address] [address] P:[phone] P:[phone] MPI Imaging Report Patient Name: BARBIE SHIPMAN M : 1935 Study Date: 01/14/2025 8:22:58 AM Gender: F Tech: [facility] Location: [facility] Provider: INDIA TUCKER Height(Cm): 160 BSA: Weight(Kg): 91.2 BMI: 35.62 Order Provider: INDIA TUCKER PHYSICIAN: Referring Physician: Karen Guillen NP. HCG Physician: Edwin Foley M.D.,F.A.C.C. Interpreting Physician: Ashok Baxter M.D. Stress Supervision: Ashok Baxter M.D. PROCEDURES: Pharmacologic SPECT Report: Myocardial perfusion imaging with Tc99M Sestamibi SPECT at rest and stresspost regadenoson (Lexiscan) infusion. INDICATIONS: High Cholesterol, Palpitations, and R07.9 Chest pain, unspecified. FINDINGS: Procedural Findings: One day rest/stress was used. Tc99m Sestamibi injected IV at rest was 12.9 millicuries 37.4 millicuries of Tc99M Sestamibi injected IV during Lexiscan stress Lexiscan 0.4mg administered IV over 10 seconds. Pharmacologic stress related symptoms and/or side effects duringinfusion include nausea. Symptoms were resolved with 100 mg of aminophylline IVP. Baseline heart rate was 57 BPM Maximum Heart Rate Achieved was: 81 BPM Baseline blood pressure was 134/72 mmHg Post Stress Blood Pressure was 136/70 mmHg Termination: Protocol complete. Resting ECG: Normal sinus rhythm. Nonspecific T wave abnormality. Cannot r/o anteriorinfarct - age uncertain. Post ECG: No diagnostic ST changes. Arrhythmia: No arrhythmias seen. Perfusion Findings: Abnormal perfusion imaging - see below. Technical quality of study isexcellent. Prone imaging was not performed. Left ventricle cavity size at rest is normal.Left ventricle cavity size with stress is unchanged. A TID of 0.91 was automaticallycalculated. defect 1: Size is medium. Severity is moderate. Location of defect is in the midanterior segment, mid anterolateral segment, apical anterior segment and apical lateralsegment. Reversibility is full. Type of defect is ischemia. LV Function: Global left ventricular function is normal. Left ventricular ejectionfraction is 69 %. CONCLUSIONS: Global left ventricular function is normal. Left ventricular ejectionfraction is 69 %. Myocardial perfusion imaging is abnormal for moderateanterior/anterolateral ischemia. No infarction. Breast attenuation artifact is also noted but prone imagingnot performed. Negative EKG portion of stress test. Electronically Signed By: Reuben Baxter MD 01/14/2025 4:20:41 PM CDT Electronically Signed By: Reuben Baxter MD 01/14/2025 4:20:41 PM CDT India Tucker JAVA CORE DEVELOPER IMG NM PROCEDURES Final R esult * ECG 12 lead (01/08/2025) 01/08/2025 India Tucker NP ECG ORDERABLES Edited Re sult - Final from Last 3 Months Insurance [facility] Member Subscriber Plan / Payer (Ef fective 2011-Present) Name:Barbie Shipman Relation to Subscriber:Spouse Name:SAUDSHELLEYCASSANDRA Fajardo Date of :1945 (Home) Address: [address] [place] [address] Payer ID:[id number] (NAIC) Group ID:[id number] Type:[facility] Address: [address] GOLD Care Teams Customer Strategy Manager Relationship Specialty Start Date End Date Karen Guillen NP [address] [place] [address] PCP - General Nurse Practitioner 01/08/25
--- OUTSIDE RECORDS SUMMARY | 2025-01-28 02:15 | XMS_ITS | Clinical Summary ---
Author Organization [facility] Address [address] [facility] [place] [address] Care Team Providers Care Nut Threader Name Role Phone Giles Olsen MD Primary Care Provider [phone] [facility],non-owned Affiliates and Associated Physician Practices is amultiple site organization consisting of ambulatory clinics and hospital sitesin [place], [place], [place] and [place]. This disclosure is being madepursuant to the Care Everywhere program and may not contain all information available regarding this patient. 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 Gender Identity Not on file Sexual Orientation Not on file Plan of Treatment Health Maintenance Due Date Last Done Comments BONE DENSITY TESTING 1935 DTAP/TDAP/TD VACCINES (1 - Tdap) 1956 PNEUMOCOCCAL VACCINE 50+ (1 of 1 - PCV) 1987 ZOSTER VACCINE (1 of 2) 1987 Respiratory Syncytial Virus (RSV) Vaccine Pt: or over 60 yrs (1 - 1-dose 75+ series) 2012 COVID-19 VACCINE (3 - 2023-2 5 season) 2024 10/19/2020, 09/28/2020 DEPRESSION SCREENING 09/02/2024 INFLUENZA VACCINE (Season Ended) 2025 HEPATITIS B VACCINE Aged Out No longe r eligible based on patient's age to complete this topic HIB VACCINE Aged Out No longer eligi ble based on patient's age to complete this topic HPV VACCINE Aged Out No longer eligi ble based on patient's age to complete this topic MENINGOCOCCAL (Group B) VACCINE SHARED DECISION-MAKING Aged Out No longer eligible based on patient's age to complete this topic MENINGOCOCCAL GROUPS A/C/Y/W VACCINE Aged Out No longer eligible b ased on patient's age to complete this topic Insurance MEDICARE [facility] Care Teams Nut Threader Relationship Specialty Start Date End Date Giles Olsen MD [address] [place] [id number] PCP - General 12/31/17
--- OUTSIDE RECORDS SUMMARY | 2025-01-28 02:15 | XMS_ITS | Data Portability ---
Author Organization [facility] [place] Address [address] [place] [address] [address] Assessment Encounter Date Assessment Date Assessment LastModified [...] skeleton + vertebral fracture assessment 2019 020 [facility], [address], [place], [address], 11:35:12 Medication Orders None recorded. Patient TargetsNo targets recorded. Patient Instructions Encounter Date Encounter Id Patient Instructions Last Modified By Organization Details Last Modified Time 07/25/2020 [id number] [email or web address] Not available 11:34:25 Reason for Referral None Reported. Results Created Date Observation Date Name Description Value Unit Range Abnormal Flag Note LastModifiedBy Organization Detail LastModifiedTime 09/22/19 21 MAMMO , scree nancy, bilat eral No observ ation record ed. layran Not Available 2020 15:46:06 01/06/20 21 DEXA, axial skele ton + verte bral fract ure asses sment No observ ation record ed. aruehrup [facility] [address], [place], [address], 01/12/2021 15:15:50 Result Notes None recorded. Problems Name Problem SNOMED Code Status Onset Date Resolution Date Notes Provider Name and Address Organization Details Recorded Time Microscop ic hematuria 471115273 Active 2010 MICROSCOPI C HEMATURIA; Recorded Elsewhere: No Locatio n: [facility] rce: EHR Chroni c: N Practice ID: [id number] Billa ble Time: 11:30:00 AM Not Available [facility] 0 15:53:17 Evaluatio n finding Active 2017 Hematuria, unspecifie d;Recorded Elsewhere: No Locatio n: [facility] rce: EHR Chroni c: N Practice ID: [id number] Billa ble Time: 12:10:00 PM Not Available [facility] 0 15:53:[address] Concept Active 2017 Encntr for general adult medical exam w/o abnormal findings;R ecorded Elsewhere: No Locatio n: [facility] rce: EHR Chroni c: N Practice ID: [id number] [place] Time: 01:00:00 PM Not Available [facility] 0 15:53:17 Specializ ed medical examinati on Active 2014 Gynecologi jomar Examinatio n;Recorded Elsewhere: No Locatio n: [facility] rce: EHR Chroni c: N Practice ID: [id number] [place] Time: 03:30:00 PM Not Available [facility] 0 15:53:17 Breathing painful 02247191 Active 2013 Chest wall pain;Recor ded Elsewhere: No Locatio n: [facility] rce: EHR Chroni c: N Practice ID: 0001 [place] Time: 01:00:00 PM Not Available [facility] 0 15:53:17 Pain of breast 15617021 Active 2013 Breast pain;Recor ded Elsewhere: No Locatio n: [facility] rce: EHR Chroni c: N Practice ID: 0001 [place] Time: 01:00:00 PM Not Available [facility] 0 15:53:[address] Concept Active 2017 Well woman check w/o abnormal finding;Re corded Elsewhere: No Locatio n: [facility] rce: EHR Chroni c: N Practice ID: 0001 [place] ble Time: 01:00:00 PM Not Available [facility] 0 15:53:17 Dysuria 89305756 Active 2017 Dysuria;Re corded Elsewhere: No Locatio n: [facility] rce: EHR Chroni c: N Practice ID: 0001 [place] Time: 01:00:00 PM Not Available [facility] 0 15:53:17 Screening for malignant neoplasm of cervix Active 2017 Encounter for screening for malignant neoplasm of cervix;Rec orded Elsewhere: No Locatio n: [facility] rce: EHR Chroni c: N Practice ID: 0001 [place] ble Time: 01:00:00 PM Not Available [facility] 0 15:53:17 Screening for malignant neoplasm of rectum Active 2010 Screening for malignant neoplasms of the rectum;Rec orded Elsewhere: No Locatio n: [facility] rce: EHR Chroni c: N Practice ID: 0001 [place] Time: 11:30:00 AM Not Available [facility] 0 15:53:17 Adult health examinati on Active 2014 ROUTINE MEDICAL EXAM;Recor ded Elsewhere: No Locatio n: [facility] rce: EHR Chroni c: N Practice ID: 0001 [place] Time: 03:30:00 PM Not Available [facility] 0 15:53:18 Problem Notes None recorded. Medical Equipment None Reported. Allergies Allergen ID Allergen Name Allergen Category Reaction Reaction Severity Criticality Documentation Date Start Date Code Code System Note Provider Name and Address Organization Details Recorded Time 2804 Product containin g penicilli n (product) medicatio n Not available Not available Not available 07/25/2020 [address]30 8001 SNALICE Vital - [facility] 0 11:21:12 Medications Name Sig Start Date Stop Date Status Note LastModified by Organization Details LastModified Time Corgard 20 mg tablet take 1 tablet by oral route every day active Prescrib ed Elsewher e: Yes Loca tion: [facility] odify By: swapnilhar tz Encou nter DateTime : 08/11/20 11 [...] Elsewher e: Yes Loca tion: [facility] odify By: greg alejo DateTime : 12/11/19 18 01:00:00 PM Not Available Not Available Not Available ondansetr on HCl 4 mg tablet take 2 tablet by oral route every 8 hours for 2 days active Prescrib ed Elsewher e: Yes Loca tion: [facility] odify By: greg alejo DateTime : 12/11/19 [...] Elsewher e: Yes Loca tion: [facility] odify By: arnie echeverria DateTime : 07/06/20 [...] Elsewher e: Yes Loca tion: [facility] odify By: candice Lassiter nter DateTime : 08/11/20 11 10:06:54 AM Not Available Not Available Not Available zolpidem 10 mg tablet take 1 tablet by oral route every day at bedtime active Prescrib ed Elsewher e: Yes Loca tion: [facility] odify By: greg Waller ncounter DateTime : 12/11/19 18 01:00:00 PM Not Available Not Available Not Available Lipitor 10 mg tablet take 1 tablet by oral route every day active Prescrib ed Elsewher e: Yes Loca tion: [facility] odify By: candice Lassiter nter DateTime : 08/11/20 11 10:06:54 AM Not Available Not Available Not Available cefaclor 125 mg/5 mL oral suspensio n take 10 millilit er by oral route every 8 hours active Prescrib ed Elsewher e: Yes Loca tion: [facility] odify By: greg Waller ncounter DateTime : 12/11/19 18 01:00:00 PM Not Available Not Available Not Available Bactrim DS 800 mg-160 mg tablet take 1 tablet by oral route every 12 hours 2017 active Prescrib ed Elsewher e: No Locat ion: [facility] odify By: arline echeverria DateTime : 08/04/20 [...] Elsewher e: Yes Loca tion: [facility] odify By: arnie echeverria DateTime : 07/06/20 14 01:00:00 PM Not Available Not Available Not Available Abaneu-SL 600 mcg-600 mcg sublingua l tablet active Prescrib ed Elsew e: Yes Loca tion: [facility] Vickie fernandez By: greg Christin chrisluiz DateTime : 12/11/19 01:00:00 PM Not Available Not Available Not Available Fluzone High-Dose Quad (PF) 240 mcg/0.7 mL IM syringe PHARMACY ADMINIST ERED 07/25 completed Not Available Not Available Not Available Vitals Date Recorded Body weight Systolic blood pressure Diastolic blood pressure Provider Name and Address Organization Details Last Updated DateTime 07/25/2020 00148.51 g 110 mm[Hg] 69 mm[Hg] Thao Shelton [facility] 07/25/2020 11:21:01 Social History None [...] SNOMED-CT Code Diagnosis ICD10 Code Diagnosis Note [id number] Rosalie Paris , [facility] [address] [address] 07/25/2020 11:09:32 07/25/2020 11:51:18 Gynecologic examination 88580370 Z01.419 Take Calcium with Vitamin D 12-1500mg daily. Do monthly self breast exams. It is advised to get annual flu shot in the fall and she could obtain at [facility] or [facility] take care clinic. If you haven't received the [...] high risk for cervical cancer. Last pap 2018 wnl SPouse in senior living. No partner Postmenopa usal osteopenia [id number] M85.80 To find out if PCP has [...] Sparks Member ID Guarantor Name 07/25/2020 2 [place] Mildred Shipman [id number] 07/25/2020 1 [place] Barbie M Ramonita [id number] Notes Date Note Type Note Provider [...] Dexa ??? PCP manages Colonoscopy Spouse in senior living. Rosalie Paris, JAYSON- [address], [place], [address], [facility] 07/25/2020 11:41:37 OBGyn Episode No OBEpisode recorded.
--- OUTSIDE RECORDS SUMMARY | 2025-01-28 02:15 | XMS_ITS | Referral Summary ---
Author Organization [place] [address] Address [address] [facility] [address] [place] [address] Care Team Providers Care Glass Presser Name Role Phone Karen Guillen NP Primary Care Provider Encounters Date Type Department Care Team Description 01/15/[address] [place] [address] India Tucker NP 01/15/2025 Results Follow-Up [address] [place] [address] India Tucker NP NM MPI SPECT (Rest and/or Stress) Multiple Studies 01/14/2025 8:15 AM CDT Ancillary Procedure [address] [place] [address] Chest pain, unspecified type 01/08/2025 10:00 AM CDT Office Visit [address] [place] [address] India Tucker NP Chest pain, unspecified type (Primary Dx) 01/05/[address] [place] [address] Edwin Foley MD from Last 3 Months Allergies Active Allergy Reactions Criticality Noted Date [...] (10 mg total) daily 9 Active multivit-min/ir on/folic/snh039 (HAIR, SKIN AND NAILS ADVANCED ORAL) Take [...] every day 0 3 01/09/20 25 Discontinu ed([facility]) Hospital, Clinic, or Other Facility Administered Medication Ordered Dose Route Frequency Start Date End Date Status aminophylline 250 mg/10 mL injection 100 mgIndications:Chest pain, unspecified type 100 mg IV Once 01/14/2025 01/14/2025 Ended Active Problems Problem Noted Date Diagnosed Date Paroxysmal atrial fibrillation 01/21/2018 Mitral valve prolapse 07/16/2017 Social History Tobacco Use Types Packs/Day Years Used Date Smoking Tobacco: Never Smokeless Tobacco: Never Tobacco Cessation:Counseling Given: Not Answered Alcohol Use Standard Drinks/Week Comments No 0 (1 standard drink = 0.6 oz pur e alcohol) Comments Unknown Sex and Gender Information Value Date Recorded Sex Assigned at Not on file 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 Gender Identity Not on file Sexual Orientation [...] 01/08/2025 10:03 AM CDT Plan of Treatment Not on file Procedures Procedure Name Priority Date/Time Associated Diagnosis [...] AM CDT Narrative 01/14/2025 4:21 PM CDT [facility] Medical Group Cardiology [address] [facility] [address] [id number] [address] [facility] [address], [place] [address] P:[phone] P:[phone] MPI Imaging Report Patient Name: BARBIE SHIPMAN M : 1935 Study Date: 01/14/2025 8:22:58 AM Gender: F Tech: JOSÉ [facility] Location: [facility] Provider: INDIA TUCKER Height(Cm): 160 BSA: Weight(Kg): [...] Procedure Note Reuben Baxter MD - 01/14/2025 [facility] Medical Group Cardiology [address], [place] [address] [address] [facility] [address], [place] [address] P:[phone] P:[phone] MPI Imaging Report Patient Name: BARBIE SHIPMAN M : 1935 Study Date: 01/14/2025 8:22:58 AM Gender: F Tech: JOSÉ [facility] Location: [facility] Provider: INDIA TUCKER Height(Cm): 160 BSA: Weight(Kg): [...] MD 01/14/2025 4:20:41 PM CDT India Tucker ROOM DESIGNER IMG NM PROCEDURES Final R esult * ECG 12 lead (01/08/2025) 01/08/2025 India Tucker NP ECG ORDERABLES Edited Re sult - Final from Last 3 Months Insurance [facility] FEDERAL AETNA MEDICARE GOLD Care Teams Glass Presser Relationship Specialty Start Date End Date Karen Guillen NP [address] [place], [place] [id number] PCP - General Nurse Practitioner 01/08/25
[2025-01-28 07:51] LABS: Basophils Absolute Auto 0.1 K/mm3 (0.0-0.1); Basophils Percent Auto 0.7 % (0.2-1.2); Eosinophils Absolute Auto 0.2 K/mm3 (0-0.3); Eosinophils Percent Auto 3.3 % (0-4.4); Hemoglobin 13.8 g/dL (12.0-15.0); Immature Granulocyte Absolute 0.02 K/mm3 (0.00-0.031); Immature Granulocyte Percent A 0.3 % (0-0.5); Lymphocytes Absolute Auto 2.83 K/mm3 (0.9-3.2); Lymphocytes Percent Auto 39.3 % (18.3-44.2); Mean Corpuscular HGB Conc 31.4 g/dl (32-36); Mean Corpuscular Hemoglobin 29.1 pg (26-34); Mean Corpuscular Volume 92.8 fl (80-100); Mean Platelet Volume 10.8 fl (7.4-10.4); Monocytes Absolute Auto 0.6 K/mm3 (0.1-0.6); Monocytes Percent Auto 8.8 % (2.6-8.5); Neutrophils Absolute Auto 3.4 K/mm3 (1.3-6.7); Neutrophils Percent Auto 47.6 % (45.5-73.1); Platelet Count Result 255 k/mm3 (150-375); Red Blood Count 4.74 M/mm3 (4.2-5.4); Red Cell Distribution Width 13.8 % (11.5-14.5); White Blood Count 7.2 K/mm3 (4.5-10.0)
[2025-01-28 08:00] LABS: Anion Gap 9 mmol/L (4-12); Blood Urea Nitrogen 24 mg/dL (7-17); Calcium 9.5 mg/dL (8.4-10.2); Carbon Dioxide 27 mmol/L (22-30); Chloride 107 mmol/L (98-107); Estimated CRCL calculation 33 ml/min; Estimated Glomerular Filt Rate 42; Glucose 122 mg/dL (65-110); Potassium 3.8 mmol/L (3.4-5.0); Sodium 143 mmol/L (137-145)
--- NOTE | 2025-01-28 08:16 | P.SEDATION_ITS ---
Moderate Sedation Note-Pt Data Patient Data Allergies Allergy/AdvReac Type Severity Reaction Status Date / Time codeine Allergy Mild NUMBNESS Verified 01/28/25 07:33 levofloxacin Allergy Mild Nausea and Verified 01/28/25 07:33 Vomiting Penicillins Allergy Mild SKIN SORE Verified 01/28/25 07:33 TO TOUCH propranolol Allergy Mild CAN'T Verified 01/28/25 07:33 TOLERATE, ABD PAIN Sulfa (Sulfonamide Allergy Mild ABD PAIN Verified 01/28/25 07:33 Antibiotics) verapamil Allergy Mild ABD PAIN Verified 01/28/25 07:33 ondansetron (From Zofran) Allergy Unknown Unknown Verified 01/28/25 07:33 Home Medications ?Medication ?Instructions ?Recorded ?Confirmed ?Type acetaminophen 500 mg tablet 500 mg PO Q6H PRN Pain 09/04/19 01/27/25 History (Tylenol Extra Strength) multivitamin with minerals 1 tablet PO DAILY 09/04/19 01/27/25 History (Hair,Skin and Nails tablet) turmeric 400 mg capsule 400 mg PO DAILY 09/04/19 01/27/25 History nadolol 40 mg tablet 40 mg PO DAILY #90 tabs 06/21/21 01/28/25 Rx trazodone 50 mg tablet 50 mg PO QHS PRN insomnia #30 tabs 03/09/24 01/27/25 Rx albuterol sulfate 90 mcg/actuation 2 puff inhalation QID PRN 09/03/24 01/27/25 Rx aerosol inhaler (Ventolin HFA) shortness of breath or wheezing #8.5 grams atorvastatin 20 mg tablet 20 mg PO DAILY #90 tabs 10/07/24 01/28/25 Rx escitalopram oxalate 20 mg tablet See Rx Instructions .Route 10/07/24 01/27/25 Rx .COMPLEX #90 tabs gabapentin 300 mg capsule See Rx Instructions .Route 10/07/24 01/27/25 Rx .COMPLEX #180 caps omeprazole 40 mg capsule,delayed See Rx Instructions .Route 01/04/25 01/27/25 Rx release .COMPLEX #180 caps Current Medications: Active Medications Sodium Chloride (Normal Saline Iv) 500 mls @ 100 mls/hr IV CONT .Q5H JAREN Sedation/Anesthesia: No previous sedation/anesthesia problems (including family history). [facility] Past Medical History Medical History (Updated 10/07/24 @ 11:40 by Karen Guillen APRN) Plantar fasciitis of left foot COVID-19 History of cardiac disorder History of open sigmoidectomy Basal cell carcinoma (BCC) of right forehead Skin neoplasm On skilled nursing drug therapy Facial pain Stress at home Paroxysmal atrial fibrillation Benign essential hypertension COPD, mild Other and unspecified hyperlipidemia Prediabetes Primary insomnia Generalized weakness History of atrial fibrillation Chest pain Foot fracture, right Patella fracture rt patella Anxiety Arthritis IBS (irritable bowel syndrome) Diverticulitis HLD (hyperlipidemia) Mitral valve prolapse Restless leg syndrome Cataracts, bilateral Seborrheic keratosis Actinic keratosis Skin cancer screening History of basal cell carcinoma (BCC) Surgical History Surgical History (Updated 10/07/24 @ 11:52 by Karen Guillen APRN) Hx laparoscopic cholecystectomy Status post laparoscopic-assisted sigmoidectomy Hx of local excision of skin lesion History of arthroscopic knee surgery rt knee Hx of cataract surgery History of cholecystectomy History of sinus surgery 1992, 2001, 2004 History of back surgery Family History Family History Father Carcinoma of colon Hypertension Mother TIA (transient ischemic attack) Heart palpitations Sibling Arthritis Other Family history of malignant neoplasm Social History Social History Smoking packs per day: 0.5 Smoking cigarettes per day: 10.0 Years smoked: 2 Smoking pack-years: 1.00 Smoking status: Former smoker Tobacco type: cigarettes Second hand tobacco smoke exposure: No Smoking end date: 01/27/25 Alcohol intake: never Substance use: former Substance use type: does not use Lack of Transportation: No Lack of Food: Never True Current Housing: I Have Housing Concerned About Future Housing: No Difficulty Paying Gas/Electric Bills: No Difficulty Paying for Meds: No Currently Unemployed: No Education: High School Diploma/GED Difficulty w/ Childcare or Family Care: No Living arrangements: with family Additional living arrangements comments: daughter lives with Occupation/Education: retired Gender identity (if verbalized by the patient): Female Sexual Orientation (if Verbalized by the Patient): Straight or Heterosexual Spiritual care concerns: No Agree to blood products: Yes Mod Sed Physical Exam Physical Exam Pre Procedural Exam: Normal: Appearance, Lungs and Heart Rate Hours since solid foods: 12 Hours since liquid intake: 12 Mallampati Classification: class II Internal Medicine - PN: Obj Da Vital Signs Vital Signs: Vital Signs - 24 hr 01/28/25 07:22 01/28/25 07:31 Temperature 36.3 C L 36.3 C L Pulse Rate 52 L 52 L Respiratory Rate 13 13 Blood Pressure 132/64 132/64 Pulse Oximetry 96 96 Oxygen Delivery Room Air Room Air Meds/Results Medications: Active Medications Generic Name Dose Route Start Last Admin Trade Name Freq PRN Reason Stop Dose Admin Sodium Chloride 500 mls @ 100 mls/hr 01/28/25 08:30 Normal Saline Iv IV CONT .Q5H JAREN Labs 01/28/25 07:19 01/28/25 07:19 Labs: Laboratory Results - last 24 hr 01/28/25 07:19 WBC 7.2 RBC 4.74 Hgb 13.8 Hct 44.0 MCV 92.8 MCH 29.1 MCHC 31.4 L RDW 13.8 Plt Count 255 MPV 10.8 H Immature Gran % (Auto) 0.3 Neut % (Auto) 47.6 Lymph % (Auto) 39.3 Moca % (Auto) 8.8 H Eos % (Auto) 3.3 Baso % (Auto) 0.7 Lymph # (Auto) 2.83 Moca # (Auto) 0.6 Eos # (Auto) 0.2 Baso # (Auto) 0.1 Abs Immat Gran (auto) 0.02 Absolute Neuts (auto) 3.4 Absolute Nucleated RBC 0.000 Nucleated RBC % 0.0 Sodium 143 Potassium 3.8 Chloride 107 Carbon Dioxide 27 Anion Gap 9 BUN 24 H Creatinine 1.20 H Estim Creat Clear Calc 33 Estimated GFR 42 L Glucose 122 H Calcium 9.5 ASA Classification/Sedation ASA Classification/Sedation ASA Class: III Emergent: No Risks: Risks, benefits and alternatives explained and patient/family accepted plan for sedation. Patient re-evaluated immediately prior to sedation.
--- NOTE | 2025-01-28 08:16 | WPDHPUPDATE1 ---
History and Physical Update Update Date/Time: 01/28/25 08:16 History and Physical has been reviewed, including an updated exam of the patient. There are NO changes in the patient's condition. Risks, benefits, and alternatives have been discussed and questions answered. Patient agrees to proceed with procedure.
--- NOTE | 2025-01-28 09:24 | WPDCARDPROC ---
Cardiac Cath Procedure Note Date of procedure:: 01/28/25 Performing physician:: CATHETERIZATION LABORATORY REPORT Procedure Date: 01/28/2025 Referring Physician: Dr. Foley Anesthesia: Versed and Fentanyl were ordered and given in my presence at 0901, procedure ended at 0916. Supervision of nurse, Zenaida Ochoa monitored moderate sedation with 2mg Versed and 50mcg Fentanyl was provided for 15 minutes. Pre-op Diagnosis: Abnormal Stress Test Post-op Diagnosis: Moderate single-vessel CAD Procedure(s): Left heart catheterization with coronary angiography Access Site: Right radial artery Brief History and Clinical Indications: 89-year-old woman with chest pain found to have abnormal nuclear stress test now presents to define her coronary anatomy with possible PCI. All risks, benefits and alternatives to left heart catheterization with or without percutaneous coronary intervention was discussed at length with the patient. Risk of complications including but not limited to bleeding, infection, arrhythmia, stroke, worsening kidney function, blood loss, groin hematoma, limb loss, emergency coronary artery bypass grafting, and even were discussed with the patient and all questions were answered. The patient understood and wished to proceed. Time out called, patient name, date of , medical record number, allergies, procedure performed, identify Software Applications Specialist, patient and staff member concurred with accurate data, procedure carried on. Findings: LEFT HEART CATHETERIZATION FINDINGS: 1. Left main: The left main coronary artery is widely patent without any significant obstructive disease. 2. Left anterior descending: The LAD provides 3 diagonal branches. The diagonal branches are free of significant angiographic disease. The proximal LAD gives off 1 septal branch that has an abnormal connection to what appears to be main pulmonary artery. The mid LAD a right after coronary pulmonary fistula has a 40-50% stenosis. The remainder of the LAD is free of angiographic disease. 3. Left circumflex: The left circumflex artery and the main marginal branches have luminal irregularities. 4. Right coronary artery: The RCA is a large dominant vessel has 10% stenosis in its proximal body. The remainder of the vessel is free of angiographic disease. 5. Left ventricle: A. End-diastolic pressure 25 mmHg. B. LV gram deferred. C. No significant gradient across aortic valve on catheter pullback. 6. Opening AO pressure 115/59 and closing AO pressure 143/68 Description of Procedure: Informed consent signed and placed in the chart. Patient transferred to laborer powerhouse room. Prepped and draped in usual sterile fashion. 2% lidocaine injected subcutaneously in right wrist area. 22-gauge venipuncture catheter used to access the right radial artery with the Seldinger technique. 6-FR slender sheath placed in right radial artery. Nitroglycerin 200mcg, Verapamil 2.5mg, and Heparin 5000U was given intraarterial through the sheath. J wire advanced under fluoroscopy. 5F Ultra diagnostic catheter engaged Left Main Coronary Artery. 5F Ultra diagnostic catheter engaged Right Coronary Artery. Multiple orthogonal angiogram obtained and reviewed 5F Pigtail catheter crossed aortic valve to obtain LVEDP, LV angiogram deferred. Hemostasis was achieved by application of TR band. 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 Post Operative Condition: Stable No significant blood loss Disposition: Home Plan: Continue aggressive medical management risk factor modification. She will need to be started on aspirin 81 mg p.o. daily. If symptoms persist, can consider cardiac CTA to better define the coronary pulmonary fistula; however it is unlikely to be causing her symptoms. Phuc Castro Interventional Cardiology
== END 2025-01-28 12:41 | disposition home or self-care (01) ==
PROVIDERS: PCP Nurse Practitioner Family; Visit Provider Internal Medicine
PROC: 4A023N7 Measurement of Cardiac Sampling and Pressure, Left Heart, Percutaneous Approach (ICD-10-PCS; CPT 93452; principal; 2025-01-28 08:30)
DX: R94.39 Abnormal result of other cardiovascular function study (principal); I25.10 Atherosclerotic heart disease of native coronary artery without angina pectoris; I48.0 Paroxysmal atrial fibrillation; I10 Essential (primary) hypertension; J44.9 Chronic obstructive pulmonary disease, unspecified; E78.49 Other hyperlipidemia; R73.03 Prediabetes; F51.01 Primary insomnia; F41.9 Anxiety disorder, unspecified; M19.90 Unspecified osteoarthritis, unspecified site; K58.9 Irritable bowel syndrome, unspecified; G25.81 Restless legs syndrome; L82.1 Other seborrheic keratosis; Z79.51 Long term (current) use of inhaled steroids; Z79.899 Other long term (current) drug therapy; Z98.890 Other specified postprocedural states; Z90.49 Acquired absence of other specified parts of digestive tract; Z98.1 Arthrodesis status; Z87.891 Personal history of nicotine dependence; Z85.828 Personal history of other malignant neoplasm of skin; Z87.19 Personal history of other diseases of the digestive system; Z86.79 Personal history of other diseases of the circulatory system; Z80.0 Family history of malignant neoplasm of digestive organs; Z82.49 Family history of ischemic heart disease and other diseases of the circulatory system
CPT/HCPCS: 36415; 80048; 85025; 93458; C1769; C1887; C1894; J1644; J2003; J2250; J3010; J7040

== ENCOUNTER 2025-03-22 07:59 | Outpatient (CLI) | payer MEDICARE, BC, SELFPAY ==
--- OUTSIDE RECORDS SUMMARY | 2025-03-22 08:02 | XMS_ITS | Referral Summary ---
Author Organization [place] [address] [address] [place] [address] Care Team Providers Care Scout Leaser Name Role Phone Karen Guillen NP Primary Care Provider [phone] Encounters Date Type Department Care Team Description 01/29/2025 Orders Only [address] [place] [address] Phuc Castro MD 01/28/2025 Orders Only [facility] Health Information Management [address] [place] [address] Scanning, Provider 01/15/[address] [place] [address] India Tucker NP 01/15/2025 Results Follow-Up [place] [address] [address] [place] [address] India Tucker NP NM MPI SPECT (Rest and/or Stress) Multiple Studies 01/14/2025 8:15 AM CDT Ancillary Procedure [address] [place] [address] Chest pain, unspecified type 01/08/2025 10:00 AM CDT Office Visit [address] [place] [address] India Tucker NP Chest pain, unspecified type (Primary Dx) 01/05/2025 Telephone [facility] Medical Group Cardiology [address] [place] [address] Edwin Foley MD from Last 3 Months Allergies Active Allergy Reactions Criticality Noted Date Comments Adhesive Tape-Silicones Codeine Penicillins Unknown 08/11/2011 Sulfa (Sulfonamide Antibiotics) Medications atorvastatin (LIPITOR) 20 mg tablet take 1 tablet (20MG) by oral route every day 0 10/31/2012 Active omeprazole (PriLOSEC) 40 mg capsule take [...] (10 mg total) daily 08/04/2019 Active multivit-min/ir on/folic/guc226 (HAIR, SKIN AND NAILS ADVANCED ORAL) Take by mouth Active nadoloL (CORGARD) 40 mg tablet TAKE 1 AND 1/2 TABLETS(60 MG) BY MOUTH DAILY 135 tablet 2 08/10/2024 Active gabapentin (NEURONTIN) 300 mg capsule Take 2 capsules (600 mg total) by mouth nightly 11/27/2024 Active Active Problems Problem Noted Date Diagnosed [...] on file Legal 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 Gender Identity Not on file Sexual Orientation [...] Procedure Name Priority Date/Time Associated Diagnosis Comments CARDIOLOGY DOCUMENT SCAN Routine 01/28/2025 3:29 PM CDT CARDIOLOGY DOCUMENT SCAN 01/28/2025 NM MPI SPECT (REST AND/OR STRESS) MULTIPLE STUDIES Schedule Routine, Read Routine (OP Routine) 01/14/2025 9:59 AM CDT Chest pain, unspecified type ECG 12-LEAD Routine 01/08/2025 Chest pain, unspecified type from Last 3 Months Results * Cardiology Document Scan (01/28/2025 3:29 PM CDT) Anatomical Region Laterality Modality Other Phuc Castro MD CV CARDIAC SERVICES PROCEDURES F inal Result * Cardiology Document Scan (01/28/2025) Anatomical Region Laterality Modality Other us Provider Scanning CV CARDIAC SERVICES PROCEDURES Final Result * NM MPI SPECT (Rest and/or Stress) Multiple Studies (01/14/2025 9:59 AM CDT) Anatomical Region Laterality Modality Body N/A Nuclear Medicine 01/14/2025 8:22 AM CDT Narrative 01/14/2025 4:21 PM CDT [facility] Medical Group Cardiology [address] [facility] [address], [place] [address] [address] [facility] [address], [place] [address] P:[phone] P:[phone] MPI Imaging Report Patient Name: BARBIE SHIPMAN M : 1935 Study Date: 01/14/2025 8:22:58 AM Gender: F Tech: ASHLY KUMAR Location: [facility] Provider: INDIA TUCKER Height(Cm): 160 BSA: [...] Procedure Note Reuben Baxter MD - 01/14/2025 [facility] Medical Group Cardiology [address] [facility] [address], [place] [address] [address] [facility] [address] [address] P:[phone] P:[phone] MPI Imaging Report Patient Name: BARBIE SHIPMAN M : 1935 Study Date: 01/14/2025 8:22:58 AM Gender: F Tech: JOSÉ [facility] Location: [facility] Provider: INDIA TUCKER Height(Cm): 160 BSA: [...] MD 01/14/2025 4:20:41 PM CDT India Tucker MARK UP DESIGNER IMG NM PROCEDURES Final R esult * ECG 12 lead (01/08/2025) 01/08/2025 us India Tucker MARK UP DESIGNER ECG ORDERABLES Edited Re sult - Final from Last 3 Months Insurance [facility] FEDERAL AETNA MEDICARE GOLD Care Teams Scout Leaser Relationship Specialty Start Date End Date Karen Guillen NP [address] [place] [address] PCP - General Nurse Practitioner 01/08/25
--- OUTSIDE RECORDS SUMMARY | 2025-03-22 08:02 | XMS_ITS | Clinical Summary ---
Author Organization [facility] [address] Address [address] [place] [address] Care Team Providers Care Head Mixer Name Role Phone Karen Guillen NP Primary Care Provider [phone] Allergies Active Allergy Reactions Criticality Noted Date [...] (10 mg total) daily 08/04/2019 Active multivit-min/ir on/folic/swp615 (HAIR, SKIN AND NAILS ADVANCED ORAL) Take [...] Department Care Team Description 01/29/2025 Orders Only [facility] Cardiology [address] [place] [address] [place] [phone] Phuc Castro MD 01/28/2025 Orders Only [facility] Health Information Management [address] [place] [address] Scanning, Provider 01/15/2025 Telephone [place] [address] [place] [phone] India Tucker NP 01/15/2025 Results Follow-Up [place] [address] [place] [phone] India Tucker NP NM MPI SPECT (Rest and/or Stress) Multiple Studies 01/14/2025 8:15 AM CDT Ancillary Procedure [place] [address] [place] [phone] Chest pain, unspecified type 01/08/2025 10:00 AM CDT Office Visit [place] [address] [place] [phone] India Tucekr NP Chest pain, unspecified type (Primary Dx) 01/05/2025 Telephone [place] [address] [place] [phone] Edwin Foley MD from Last 3 Months [...] on file 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 Gender Identity Not on file Sexual Orientation [...] Depression Screening 1935 Fall Risk Assessment 1935 Osteoporosis Screening-Bone Density Scan 1935 Hepatitis B Screening 1955 Pneumococcal vaccine [...] Scan (01/28/2025) Anatomical Region Laterality Modality Other Provider Scanning CV CARDIAC SERVICES PROCEDURES Final Result * NM MPI SPECT (Rest and/or Stress) Multiple Studies (01/14/2025 9:59 AM CDT) Anatomical Region Laterality Modality Body N/A Nuclear Medicine 01/14/2025 8:22 AM CDT Narrative 01/14/2025 4:21 PM CDT [facility] Medical Group Cardiology [address] [facility] [address], [place] [address] [address] [facility] [address], [place] [address] P:[phone] P:[phone] MPI Imaging Report Patient Name: BARBIE SHIPMAN M : 1935 Study Date: 01/14/2025 8:22:58 AM Gender: F Tech: JOSÉ [facility] Location: [facility] Provider: INDIA TUCKER Height(Cm): 160 [...] Procedure Note Reuben Baxter MD - 01/14/2025 [facility] Medical Group Cardiology [address] [facility] [address] [address] [address] [facility] [address], [place] [address] P:[phone] P:[phone] MPI Imaging Report Patient Name: BARBIE SHIPMAN M : 1935 Study Date: 01/14/2025 8:22:58 AM Gender: F Tech: PENNIE KUMARMT Location: [facility] Provider: INDIA TUCKER Height(Cm): 160 BSA: Weight(Kg): 91.2 BMI: 35.62 Order Provider: GARRETTINDIA PHYSICIAN: Referring Physician: Karen Guillen NP. HCG [...] MD 01/14/2025 4:20:41 PM CDT India Tucker NP IMG NM PROCEDURES Final R esult * ECG 12 lead (01/08/2025) 01/08/2025 India Tucker NP ECG ORDERABLES Edited Re sult - Final from Last 3 Months Insurance [facility] AETNA MEDICARE GOLD Care Teams Head Mixer Relationship Specialty Start Date End Date Karen Guillen NP [address] [place] [address] PCP - General Nurse Practitioner 01/08/25
--- OUTSIDE RECORDS SUMMARY | 2025-03-22 08:03 | XMS_ITS | Clinical Summary ---
Author Organization [facility] Address [address] [facility] [place] [address] Care Team Providers Care Top Hat Body Maker Name Role Phone Giles Olsen MD Primary Care Provider [phone] Source Comments [facility],non-owned Affiliates and Associated Physician Practices is amultiple site organization consisting of ambulatory clinics and hospital sitesin [place], [place], [place] and [place]. This disclosure is being madepursuant to the Care Everywhere program and may not contain all information available regarding this patient. Last updated 18.[facility] Immunizations Immunization Administration Dates Next Due Covid Pfizer primary monoval ent 12+ yr 0.3mL Purple cap 10/19/2020,09/28/2020 Social History Tobacco Use Types Packs/Day Years Used Date Smoking Tobacco: Never Assessed Comments Unknown Sex and Gender Information Value Date Recorded Sex Assigned at Not on file Legal Sex Female 6:17 AM AUTO TRAVEL COUNSELOR Gender Identity Not on file Sexual Orientation [...] 10/19/2020, 09/28/2020 DEPRESSION SCREENING 09/02/2024 INFLUENZA VACCINE (#1) 2025 HEPATITIS B VACCINE Aged Out No [...] age to complete this topic Insurance MEDICARE [facility] Care Teams Top Hat Body Maker Relationship Specialty Start Date End Date Giles Olsen MD [address] [place] [phone] PCP - General 12/31/17
--- OUTSIDE RECORDS SUMMARY | 2025-03-22 08:03 | XMS_ITS | Encounter Summary ---
Author Organization [facility] Healthcare Address [address] [place] [address] Care Team Providers Care Gem Setter Name Role Phone Karen Guillen NP Primary Care Provider [phone] Encounter Details Date Type Department Care Team (Late st Contact Info) Description 01/28/2025 Orders Only [facility] [place] Information Management [address] [place] [address] Scanning, Provider Social History Tobacco Use Types Packs/Day Years Used Date Smoking Tobacco: Never Smokeless Tobacco: Never Alcohol Use Standard Drinks/Week Comments No 0 (1 standard drink = 0.6 oz pur e alcohol) Comments Unknown Sex and Gender Information Value Date Recorded Sex Assigned at Not on file Legal Sex Female 4:35 AM DIRECTOR OF ENGINEERING Gender Identity Not on file Sexual Orientation Not on file documented as of this encounter Plan of Treatment Not on file documented as of this encounter Procedures Procedure Name Priority Date/Time Associated Diagnosis Comments CARDIOLOGY DOCUMENT SCAN 01/28/2025 documented in this encounter Results * Cardiology Document Scan (01/28/2025) Anatomical Region Laterality Modality Other us Provider Scanning CV CARDIAC SERVICES PROCEDURES Final Result documented in this encounter Visit Diagnoses Not on filedocumented in this encounter Care Teams Gem Setter Relationship Specialty Start Date End Date Karen Guillen NP [address] [place] [address] PCP - General Nurse Practitioner 01/08/25 documented as of this encounter
--- OUTSIDE RECORDS SUMMARY | 2025-03-22 08:03 | XMS_ITS | Encounter Summary ---
Author Organization [facility] Healthcare Address [address] [place] [address] Care Team Providers Care Epitaxial Reactor Operator Name Role Phone Giles Olsen MD Primary Care Provider [phone] Flip Espino DO Primary Care Provider [phone] Rikki Simon MD Primary Care Provider [phone] Karen Guillen NP Primary Care Provider [phone] Encounter Details Date Type Department Care Team (Late st Contact Info) Description 11/23/2017 Orders Only [facility] [place] Information Management [address] [place] [address] Scanning, Provider Social History Tobacco Use Types Packs/Day Years Used Date Smoking Tobacco: Never Smokeless Tobacco: Never Alcohol Use Standard Drinks/Week Comments No 0 (1 standard drink = 0.6 oz pur e alcohol) Comments Unknown Sex and Gender Information Value Date Recorded Sex Assigned at Not on file Legal Sex Female 4:35 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 Gender Identity Not on file Sexual Orientation Not on file documented as of this encounter Plan of Treatment Not on file documented as of this encounter Procedures Procedure Name Priority Date/Time Associated Diagnosis Comments CARDIOLOGY DOCUMENT SCAN 11/23/2017 documented in this encounter Results * Cardiology Document Scan (11/23/2017) Anatomical Region Laterality Modality Other us Provider Scanning CV CARDIAC SERVICES PROCEDURES Final Result documented in this encounter Visit Diagnoses Not on filedocumented in this encounter Care Teams Epitaxial Reactor Operator Relationship Specialty Start Date End Date Giles Olsen MD [address] [place] [address] PCP - General 11/30/16 06/10/19 Flip Espino DO [address] [place] [address] PCP - General Internal Medicine 06/11/19 08/14/23 Rikki Simon MD [address] [facility] [address] [place] [address] PCP - General Family Practice 08/15/23 01/07/25 Karen Guillen COOKER MECHANIC [address] [facility] [address] [place] [address] PCP - General Nurse Practitioner 01/08/25 documented as of this encounter
--- OUTSIDE RECORDS SUMMARY | 2025-03-22 08:03 | XMS_ITS | Data Portability ---
Author Organization [facility] Address [address] [address] Assessment Encounter Date Assessment Date Assessment LastModified [...] skeleton + vertebral fracture assessment 2019 020 [facility], [address], [place], [address], 11:35:12 Medication Orders None recorded. Patient TargetsNo targets recorded. Patient Instructions Encounter Date Encounter Id Patient Instructions Last Modified By Organization Details Last Modified Time 07/25/2020 [id number] [email or web address] Not available 11:34:25 Reason for Referral None Reported. Results Created Date Observation Date Name Description Value Unit Range Abnormal Flag Note LastModifiedBy Organization Detail LastModifiedTime 09/22/19 21 MAMMO , scree nancy, bilat eral No observ ation record ed. layran Not Available 2020 15:46:06 01/06/20 21 DEXA, axial skele ton + verte bral fract ure asses sment No observ ation record ed. [facility] [address], [place], [address], 01/12/2021 15:15:50 Result Notes None recorded. Problems Name Problem SNOMED Code Status Onset Date Resolution Date Notes Provider Name and Address Organization Details Recorded Time Microscop ic hematuria 110998288 Active 2010 MICROSCOPI C HEMATURIA; Recorded Elsewhere: No Locatio n: [facility] rce: EHR Chroni c: N Practice ID: 0001 Billa ble Time: 11:30:00 AM Not Available [facility] 0 15:53:17 Screening for malignant neoplasm of rectum Active 2010 Screening for malignant neoplasms of the rectum;Rec orded Elsewhere: No Locatio n: [facility] rce: EHR Chroni c: N Practice ID: 0001 Billa ble Time: 11:30:00 AM Not Available [facility] 0 15:53:17 Breathing painful 47480662 Active 2013 Chest wall pain;Recor ded Elsewhere: No Locatio n: [facility] rce: EHR Chroni c: N Practice ID: 0001 Billa ble Time: 01:00:00 PM Not Available [facility] 0 15:53:17 Pain of breast 86805697 Active 2013 Breast pain;Recor ded Elsewhere: No Locatio n: [facility] rce: EHR Chroni c: N Practice ID: 0001 Billa ble Time: 01:00:00 PM Not Available [facility] 0 15:53:17 Specializ ed medical examinati on Active 2014 Gynecologi jomar Examinatio n;Recorded Elsewhere: No Locatio n: [facility] rce: EHR Chroni c: N Practice ID: 0001 Billa ble Time: 03:30:00 PM Not Available [facility] 0 15:53:17 Adult health examinati on Active 2014 ROUTINE MEDICAL EXAM;Recor ded Elsewhere: No Locatio n: [facility] rce: EHR Chroni c: N Practice ID: 0001 Billa ble Time: 03:30:00 PM Not Available [facility] 0 15:53:[address] Concept Active 2017 Encntr for general adult medical exam w/o abnormal findings;R ecorded Elsewhere: No Locatio n: [facility] rce: EHR Chroni c: N Practice ID: 0001 Billa ble Time: 01:00:00 PM Not Available [facility] 0 15:53:[address] Concept Active 2017 Well woman check w/o abnormal finding;Re corded Elsewhere: No Locatio n: [facility] rce: EHR Chroni c: N Practice ID: 0001 Billa ble Time: 01:00:00 PM Not Available [facility] 0 15:53:17 Dysuria 07303616 Active 2017 Dysuria;Re corded Elsewhere: No Locatio n: [facility] rce: EHR Chroni c: N Practice ID: 0001 Billa ble Time: 01:00:00 PM Not Available [facility] 0 15:53:17 Screening for malignant neoplasm of cervix Active 2017 Encounter for screening for malignant neoplasm of cervix;Rec orded Elsewhere: No Locatio n: [facility] rce: EHR Chroni c: N Practice ID: 0001 Billa ble Time: 01:00:00 PM Not Available [facility] 0 15:53:17 Evaluatio n finding Active 2017 Hematuria, unspecifie d;Recorded Elsewhere: No Locatio n: [facility] rce: EHR Chroni c: N Practice ID: 0001 Billa ble Time: 12:10:00 PM Not Available [facility] 0 15:53:17 Problem Notes None recorded. Medical Equipment None Reported. Allergies Allergen ID Allergen Name Allergen Category Reaction Reaction Severity Criticality Documentation Date Start Date Code Code System Note Provider Name and Address Organization Details Recorded Time 2804 Product containin g penicilli n (product) medicatio n Not available Not available Not available 07/25/2020 [address]19 [address] [place] - [facility] 0 11:21:12 Medications Name Sig Start Date Stop Date Status Note LastModified by Organization Details LastModified Time Corgard 20 mg tablet take 1 tablet by oral route every day active Prescrib ed Elsewher e: Yes Loca tion: [facility] odify By: lbillhar tz Encou nter DateTime : 08/11/20 11 [...] Elsewher e: Yes Loca tion: [facility] odify By: greg alejo DateTime : 12/11/19 18 01:00:00 PM Not Available Not Available Not Available ondansetr on HCl 4 mg tablet take 2 tablet by oral route every 8 hours for 2 days active Prescrib ed Elsewher e: Yes Loca tion: [facility] odify By: greg alejo DateTime : 12/11/19 [...] Elsewher e: Yes Loca tion: [facility] odify By: arnie echeverria DateTime : [...] Elsewher e: Yes Loca tion: [facility] odify By: candice Lassiter nter DateTime : 08/11/20 11 10:06:54 AM Not Available Not Available Not Available zolpidem 10 mg tablet take 1 tablet by oral route every day at bedtime active Prescrib ed Elsewher e: Yes Loca tion: [facility] odify By: greg Waller ncounter DateTime : 12/11/19 18 01:00:00 PM Not Available Not Available Not Available Lipitor 10 mg tablet take 1 tablet by oral route every day active Prescrib ed Elsewher e: Yes Loca tion: [facility] odify By: candice Lassiter nter DateTime : 08/11/20 11 10:06:54 AM Not Available Not Available Not Available cefaclor 125 mg/5 mL oral suspensio n take 10 millilit er by oral route every 8 hours active Prescrib ed Elsewher e: Yes Loca tion: [facility] odify By: greg Waller ncounter DateTime : 12/11/19 18 01:00:00 PM Not Available Not Available Not Available Bactrim DS 800 mg-160 mg tablet take 1 tablet by oral route every 12 hours 2017 active Prescrib ed Elsewher e: No Locat ion: [facility] odify By: arline echeverria DateTime : [...] Elsewher e: Yes Loca tion: [facility] odify By: arnie echeverria DateTime : 07/06/20 14 01:00:00 PM Not Available Not Available Not Available Abaneu-SL 600 mcg-600 mcg sublingua l tablet active Prescrib ed Elsewher e: Yes Loca tion: [facility] Vickie fernandez By: constantineteresita Waller sapna DateTime : 12/11/19 01:00:00 PM Not Available Not Available Not Available Fluzone High-Dose Quad (PF) 240 mcg/0.7 mL IM syringe PHARMACY ADMINIST EREEvi 07/25 completed Not Available Not Available Not Available Vitals Date Recorded Body weight Systolic And Diastolic Provider Name and Address Organization Details Last Updated DateTime 07/25/2020 06077.51 g 110/69 mm[Hg] Thao Shelton [facility] 07/25/2020 11:21:01 Social History None [...] SNOMED-CT Code Diagnosis ICD10 Code Diagnosis Note [id number] Rosalie Paris , [facility] [address] [address] 07/25/2020 11:09:32 07/25/2020 11:51:18 Gynecologic examination 12488377 Z01.419 Take Calcium with Vitamin D 12-1500mg daily. Do monthly self breast exams. It is advised to get annual flu shot in the fall and she could obtain at [facility] or [facility] take care clinic. If you haven't received [...] cancer. Last pap 2018 wnl SPouse in [place]. No partner Postmenopa usal osteopenia [id number] M85.80 To find out if PCP has previously ordered as none on file. Gave order in case it has not been completed in a few years. Health Concerns Section Related Observation LastModified by Organization Detai ls LastModified Time None Recorded Concern Status LastModified by Organization Details LastModified Time None Recorded Advance Directives Directive None Recorded Payers Insurance Date Sequence Insurance Name Policy Number Policy Sparks Covered Member ID Sparks Member ID Guarantor Name 07/25/2020 2 [place] Mildred Shipman [id number] 11/24/2020 1 [place] Barbie Vickie Ramonita [id number] Notes Date Note Type Note Provider [...] Dexa ??? PCP manages Colonoscopy Spouse in [place]. Rosalie Paris, JAYSON- [address], [place], [address], [facility] 07/25/2020 11:41:37 OBGyn Episode No OBEpisode recorded.
[2025-03-22 08:46] LABS: Hematocrit 39.0 % (37.0-47.0); Hemoglobin 12.1 g/dL (12.0-15.0); Immature Granulocyte Percent A 0.2 % (0-0.5); Lymphocytes Absolute Auto 2.45 K/mm3 (0.9-3.2); Mean Corpuscular HGB Conc 31.0 g/dl (32-36); Mean Corpuscular Hemoglobin 28.6 pg (26-34); Mean Corpuscular Volume 92.2 fl (80-100); Nucleated Red Blood Cells Absolute Auto 0.000 K/mm3 (0.0-0.012); Nucleated Red Blood Cells Perc 0.0 % (0.0-0.2); Platelet Count Result 216 k/mm3 (150-375); Red Blood Count 4.23 M/mm3 (4.2-5.4); White Blood Count 5.3 K/mm3 (4.5-10.0)
[2025-03-22 09:17] LABS: Alanine Aminotransferase 19 U/L (6-35); Albumin Level 3.8 g/dL (3.5-5.1); Alkaline Phosphatase 69 U/L (38-126); Anion Gap 7 mmol/L (4-12); Aspartate Amino Transferase 31 U/L (14-36); Bilirubin,Total 0.6 mg/dL (0.2-1.3); Blood Urea Nitrogen 18 mg/dL (7-17); Calcium 9.1 mg/dL (8.4-10.2); Carbon Dioxide 26 mmol/L (22-30); Chloride 110 mmol/L (98-107); Cholesterol 164 mg/dL (0-200); Estimated Glomerular Filt Rate 38; Glucose 110 mg/dL (65-110); HDL Direct 39 mg/dL; Potassium 4.2 mmol/L (3.4-5.0); Sodium 143 mmol/L (137-145); Total Protein 6.5 g/dL (6.3-8.2); Triglycerides 102 mg/dL (<150)
[2025-03-22 09:34] LABS: Hemoglobin A1C 6.3 % (<5.7)
[2025-03-22 10:54] LABS: MALB Creatinine Ratio < 8.1 mg/g (0-30)
== END 2025-03-22 08:00 | disposition home or self-care (01) ==
PROVIDERS: PCP Nurse Practitioner Family; Visit Provider Nurse Practitioner Family
DX: F41.9 Anxiety disorder, unspecified (principal); I10 Essential (primary) hypertension; Z12.39 Encounter for other screening for malignant neoplasm of breast; Z86.79 Personal history of other diseases of the circulatory system; E78.5 Hyperlipidemia, unspecified; R73.03 Prediabetes; E66.9 Obesity, unspecified
CPT/HCPCS: 36415; 80053; 80061; 82043; 83036; 85025

== ENCOUNTER 2025-05-25 15:22 | Outpatient (CLI) | payer MEDICARE, BC, SELFPAY ==
--- NOTE | ~2025-05-25 | US_ITS ---
EXAMINATION: US venous doppler [facility] DATE: 05/25/2025 15:49 INDICATION: Left lower limb pain TECHNIQUE: Grayscale ultrasound images without and with compression and Doppler ultrasound images of the left lower extremity veins were obtained. COMPARISON: None. FINDINGS: The visualized portions of left common femoral vein, profunda (deep) femoral vein, femoral vein, popliteal vein, peroneal veins, posterior tibial veins, gastrocnemius vein and greater saphenous vein outflow are patent. IMPRESSION: 1. No deep venous thrombosis in the left lower limb. Reviewed, dictated and finalized at location A.
--- OUTSIDE RECORDS SUMMARY | 2025-05-25 15:26 | XMS_ITS | Clinical Summary ---
Author Organization [facility] [address] Address [address] [place] [address] Care Team Providers Care Policy Change Clerk Name Role Phone Karen Guillen NP Primary Care Provider [phone] Allergies Active Allergy Reactions Criticality Noted Date Comments Adhesive Tape-Silicones Codeine Levofloxacin Nausea & Vomiting Low 03/22/2025 Ondansetron Unknown 03/22/2025 Penicillins Unknown 08/11/2011 Propranolol Other (See comments) Low 03/22/2025 ABD PAIN Sulfa (Sulfonamide Antibiotics) Verapamil Stomach upset Low 03/22/2025 Medications atorvastatin (LIPITOR) 20 mg tablet take [...] (10 mg total) daily 08/04/2019 Active multivit-min/ir on/folic/fxp074 (HAIR, SKIN AND NAILS ADVANCED ORAL) Take by mouth Active gabapentin (NEURONTIN) 300 mg capsule Take 2 capsules (600 mg total) by mouth nightly 11/27/2024 Active nadoloL (CORGARD) 40 mg tablet TAKE 1 AND 1/2 TABLETS BY MOUTH DAILY (60 MG) 135 tablet 1 03/23/2025 Active Active Problems Problem Noted Date Diagnosed Date Paroxysmal atrial fibrillation 01/21/2018 Mitral valve prolapse 07/16/2017 Encounters Date Type Department Care Team Description 05/06/2025 9:45 AM CDT Office Visit [facility] Cardiology [address] [place] [address] Edwin Foley MD Paroxysmal atrial fibrillation (HCC) (Primary Dx); Mitral valve prolapse from Last 3 Months Medical History Medical [...] on file 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 Gender Identity Not on file Sexual Orientation Not on file Obstetrics History Last Filed Vital Signs Vital Sign Reading Time Taken Comments Blood Pressure 116/66 05/06/2025 10:05 AM CDT Pulse 63 05/06/2025 10:05 AM CDT Temperature - - Respiratory Rate - - Oxygen Saturation 92% 05/06/2025 10:05 AM CDT Inhaled Oxygen Concentration - - Weight 95.4 kg (210 lb 6.4 oz) 05/06/2025 10:05 AM CDT Height 160 cm (5' 3) 05/06/2025 10:05 AM CDT Body Mass Index 37.27 05/06/2025 10:05 AM CDT Plan of Treatment Health Maintenance Due Date Last Done Comments Depression Screening 1937 Fall Risk Assessment 1937 Osteoporosis Screening-Bone Density Scan 1937 Hepatitis B Screening 1955 Pneumococcal vaccine 65+ (1 of 2 - PCV) 1956 Well Visit 65+ 2002 Covid-19 Vaccine (2024-2 6 season) 2025 12/28/2021, 05/31/2021, 10/19/2020, Additional history exists Influenza Vaccine (#1) 2025 , 06/02/2014, 07/12/2012 DTaP/Tdap/Td Vaccine (2 - Td or Tdap) 01/07/2026 01/08/2016 Zoster Vaccine Completed 07/05/2019, 05/05/2019 Insurance [facility] AETNA MEDICARE GOLD Care Teams Policy Change Clerk Relationship Specialty Start Date End Date Karen Guillen NP [address] [place] [address] PCP - General Nurse Practitioner 01/08/25
--- OUTSIDE RECORDS SUMMARY | 2025-05-25 15:26 | XMS_ITS | Clinical Summary ---
Author Organization [facility] Address [address] [place] [address] Care Team Providers Care High School Science Teacher Name Role Phone Giles Olsen MD Primary Care Provider [phone] Source Comments [facility],non-owned Affiliates and Associated Physician Practices is amultiple site organization consisting of ambulatory clinics and hospital sitesin [place], [place], [place] and [place]. This disclosure is being madepursuant to the Care Everywhere program and may not contain all information available regarding this patient. 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 Gender Identity Not on file Sexual Orientation Not on file Plan of Treatment Health Maintenance Due Date Last Done Comments BONE DENSITY TESTING 1937 DTAP/TDAP/TD VACCINES (1 - Tdap) 1956 PNEUMOCOCCAL VACCINE 50+ (1 of 1 - PCV) 1987 ZOSTER VACCINE (1 of 2) 1987 Respiratory Syncytial Virus (RSV) Vaccine Pt: or over 60 yrs (1 - 1-dose 75+ series) 2012 DEPRESSION SCREENING 09/02/2024 COVID-19 VACCINE (3 - 2024-2 6 season) 2025 10/19/2020, 09/28/2020 INFLUENZA VACCINE (#1) 2025 HEPATITIS B VACCINE [...] to complete this topic Insurance MEDICARE [facility] Care Teams High School Science Teacher Relationship Specialty Start Date End Date Giles Olsen MD [address] [place] [address] PCP - General 12/31/17
--- OUTSIDE RECORDS SUMMARY | 2025-05-25 15:26 | XMS_ITS | Encounter Summary ---
Author Organization [facility] Healthcare Address [address] [place] [address] Care Team Providers Care Hotel Service Manager Name Role Phone Giles Olsen MD Primary Care Provider Flip Espino DO Primary Care Provider [phone] Rikki Simon MD Primary Care Provider [phone] Karen Guillen NP Primary Care Provider [phone] Encounter Details Date Type Department Care Team (Late st Contact Info) Description 11/23/2017 Orders Only [facility] [place] Information Management [address] [place] [address] Scanning, Provider Social History Tobacco Use Types Packs/Day Years Used Date Smoking Tobacco: Never Smokeless Tobacco: Never Alcohol Use Standard Drinks/Week Comments No 0 (1 standard drink = 0.6 oz pur e alcohol) Comments Unknown Sex and Gender Information Value Date Recorded Sex Assigned at Not on file 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 Gender Identity Not on file Sexual [...] on filedocumented in this encounter Care Teams Hotel Service Manager Relationship Specialty Start Date End Date Giles Olsen MD [address] [place] [address] PCP - General 11/30/16 06/10/19 Flip Espino DO [address] [place] [address] PCP - General Internal Medicine 06/11/19 08/14/23 Rikki Simon MD [address] [facility] [address] [place] [address] PCP - General Family Practice 08/15/23 01/07/25 Karen Guillen B2B SALES MANAGER [address] [facility] [address] [place] [address] PCP - General Nurse Practitioner 01/08/25 documented as of this encounter
--- OUTSIDE RECORDS SUMMARY | 2025-05-25 15:26 | XMS_ITS | Encounter Summary ---
Author Organization [facility] Healthcare Address [address] [place] [address] Care Team Providers Care Sales Contracts Analyst Name Role Phone Karen Guillen NP Primary Care Provider [phone] Encounter Details Date Type Department Care Team (Late Contact Info) Description 01/28/2025 Orders Only [facility] [place] Health Information Management [address] [place] [id number] Scanning, Provider Social History Tobacco Use Types Packs/Day Years Used Date Smoking Tobacco: Never Smokeless Tobacco: Never Alcohol Use Standard Drinks/Week Comments No 0 (1 standard drink = 0.6 oz pur e alcohol) Comments Unknown Sex and Gender Information Value Date Recorded Sex Assigned at Not on file 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 Gender Identity Not on file Sexual Orientation Not on file documented as of this encounter Plan of Treatment Not on file documented as of this encounter Procedures Procedure Name Priority Date/Time Associated Diagnosis Comments SCAN - LABS 01/28/2025 CARDIOLOGY DOCUMENT SCAN 01/28/2025 documented in this encounter Results * SCAN - LABS (01/28/2025) us Provider Scanning Final Result * Cardiology Document Scan (01/28/2025) Anatomical Region Laterality Modality Other us Provider Scanning CV CARDIAC SERVICES PROCEDURES Final Result documented in this encounter Visit Diagnoses Not on filedocumented in this encounter Care Teams Sales Contracts Analyst Relationship Specialty Start Date End Date Karen Guillen NP [address] [place], [place] [id number] PCP - General Nurse Practitioner 01/08/25 documented as of this encounter
== END 2025-05-25 15:23 | disposition home or self-care (01) ==
PROVIDERS: PCP Nurse Practitioner Family; Visit Provider Nurse Practitioner Family
DX: M79.89 Other specified soft tissue disorders (principal)
CPT/HCPCS: 93971

== ENCOUNTER 2025-06-14 09:21 | Outpatient (CLI) | payer MEDICARE, BC, SELFPAY ==
--- NOTE | ~2025-06-14 | MM_ITS ---
EXAMINATION: MM screening brooke BI w radha HISTORY: Screening TECHNIQUE: Craniocaudal and mediolateral oblique 3-D tomosynthesis images were obtained and synthetic 2-D images were generated. CAD analysis was submitted and interpreted. COMPARISON: 05/23/2023 BREAST PARENCHYMAL COMPOSITION: There are scattered areas of fibroglandular density. FINDINGS: There is no evidence of suspicious mass, calcification, or architectural distortion to suggest malignancy. There has been no suspicious interval change. IMPRESSION: 1. No mammographic evidence of malignancy. Recommend routine screening mammography in one year. BI-RADS Category 2: Benign finding(s) Reviewed, dictated and finalized at location Q. IMPRESSION: 1. No mammographic evidence of malignancy. Recommend routine screening mammogra phy in one year. BI-RADS Category 2: Benign finding(s)
--- OUTSIDE RECORDS SUMMARY | 2025-06-14 09:52 | XMS_ITS | Encounter Summary ---
Author Organization [facility] Healthcare Address [address] [place] [address] Care Team Providers Care Airline Station Agent Name Role Phone Giles Olsen MD Primary Care Provider [phone] Flip Espino DO Primary Care Provider [phone] Rikki Simon MD Primary Care Provider [phone] Karen Guillen NP Primary Care Provider [phone] Encounter Details Date Type Department Care Team (Late st Contact Info) Description 11/23/2017 Orders Only [facility] [place] Information Management [address] [place] [address] Scanning, Provider Social History Tobacco Use Types Packs/Day Years Used Date Smoking Tobacco: Never Smokeless Tobacco: Never Alcohol Use Standard Drinks/Week Comments No 0 (1 standard drink = 0.6 oz pur e alcohol) Comments Unknown Sex and Gender Information Value Date Recorded Sex Assigned at Not on file 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
--- OUTSIDE RECORDS SUMMARY | 2025-06-14 09:52 | XMS_ITS | Clinical Summary ---
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
--- OUTSIDE RECORDS SUMMARY | 2025-06-14 09:52 | XMS_ITS | Encounter Summary ---
Author Organization [facility] Healthcare Address [address] [place] [address] Care Team Providers Care Bail Agent Name Role Phone Karen Guillen NP Primary Care Provider [phone] Encounter Details Date Type Department Care Team (Late Contact Info) Description 01/28/2025 Orders Only [facility] [place] Health Information Management [address] [place] [address] Scanning, Provider Social History Tobacco Use Types Packs/Day Years Used Date Smoking Tobacco: Never Smokeless Tobacco: Never Alcohol Use Standard Drinks/Week Comments No 0 (1 standard drink = 0.6 oz pur e alcohol) Comments Unknown Sex and Gender Information Value Date Recorded Sex Assigned at Not on file 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
--- OUTSIDE RECORDS SUMMARY | 2025-06-14 09:52 | XMS_ITS | Clinical Summary ---
Author Organization [facility] Address [address] [place] [address] Care Team Providers Care Manufacturing Operations Manager Name Role Phone Giles Olsen MD Primary Care Provider [phone] Source Comments [facility],non-owned Affiliates and Associated Physician Practices is amultiple site organization consisting of ambulatory clinics and hospital sitesin [place], [place] and [place]. This disclosure is being madepursuant to the Care Everywhere program and may not contain all information available regarding this patient. 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
== END 2025-06-14 09:22 | disposition home or self-care (01) ==
LOC: ANHFOHIMG 09:23
PROVIDERS: PCP Nurse Practitioner Family; Visit Provider Nurse Practitioner Family
DX: Z12.31 Encounter for screening mammogram for malignant neoplasm of breast (principal)
CPT/HCPCS: 77063; 77067

== ENCOUNTER 2025-07-27 12:59 | Outpatient (CLI) | payer MEDICARE, BC, SELFPAY ==
[2025-07-27 13:35] LABS: Alanine Aminotransferase 17 U/L (6-35); Albumin Level 4.2 g/dL (3.5-5.1); Alkaline Phosphatase 68 U/L (38-126); Anion Gap 8 mmol/L (4-12); Aspartate Amino Transferase 25 U/L (14-36); Bilirubin,Total 0.6 mg/dL (0.2-1.3); Blood Urea Nitrogen 18 mg/dL (7-17); Calcium 9.3 mg/dL (8.4-10.2); Carbon Dioxide 27 mmol/L (22-30); Chloride 105 mmol/L (98-107); Estimated Glomerular Filt Rate 40; Glucose 93 mg/dL (65-110); Potassium 4.2 mmol/L (3.4-5.0); Sodium 140 mmol/L (137-145); Total Protein 7.3 g/dL (6.3-8.2)
[2025-07-27 13:37] LABS: Add Urine Microscopic? YES; Appearance Urine Cloudy (Clear); Glucose Urine UA Negative (Negative); Leukocyte Esterase Ur 1+ LEU/UL (Negative); Need Manual Microscopic Reviewed; Nitrate Urine Negative (Negative); Non Pathogenic Casts 0-2; Specific Grav Ur 1.018 (1.001-1.035)
--- OUTSIDE RECORDS SUMMARY | 2025-07-27 14:14 | XMS_ITS | Encounter Summary ---
Author Organization [facility] Healthcare Address [address] [place] [address] Care Team Providers Care Crane Ladle Person Name Role Phone Giles Olsen MD Primary Care Provider [phone] Flip Espino DO Primary Care Provider [phone] Rikki Simon MD Primary Care Provider [phone] Karen Guillen NP Primary Care Provider [phone] Encounter Details Date Type Department Care Team (Late st Contact Info) Description 11/23/2017 Orders Only [facility] Health Information Management [address] [place] [address] Scanning, Provider Social History Tobacco Use Types Packs/Day Years Used Date Smoking Tobacco: Never Smokeless Tobacco: Never Alcohol Use Standard Drinks/Week Comments No 0 (1 standard drink = 0.6 oz pur e alcohol) Comments Unknown Sex and Gender Information Value Date Recorded Sex Assigned at Not on file 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
--- OUTSIDE RECORDS SUMMARY | 2025-07-27 14:14 | XMS_ITS | Encounter Summary ---
Author Organization [facility] Healthcare Address [address] [place] [address] Care Team Providers Care Optical Laboratory Technician Name Role Phone Karen Guillen NP Primary Care Provider [phone] Encounter Details Date Type Department Care Team (Late Contact Info) Description 01/28/2025 Orders Only [facility] [place] Health Information Management [address] [place] [address] Scanning, Provider Social History Tobacco Use Types Packs/Day Years Used Date Smoking Tobacco: Never Smokeless Tobacco: Never Alcohol Use Standard Drinks/Week Comments No 0 (1 standard drink = 0.6 oz pur e alcohol) Comments Unknown Sex and Gender Information Value Date Recorded Sex Assigned at Not on file 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
--- OUTSIDE RECORDS SUMMARY | 2025-07-27 14:14 | XMS_ITS | Clinical Summary ---
Author Organization [facility] Address [address] [place] [address] Care Team Providers Care Director Retirement Name Role Phone Giles Olsen MD Primary Care Provider [phone] Source Comments [facility],non-owned Affiliates and Associated Physician Practices is amultiple site organization consisting of ambulatory clinics and hospital sitesin [place], [place], [place] and [place]. This disclosure is being madepursuant to the Care Everywhere program and may not contain all information available regarding this patient. 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
--- OUTSIDE RECORDS SUMMARY | 2025-07-27 14:14 | XMS_ITS | Clinical Summary ---
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
--- OUTSIDE RECORDS SUMMARY | 2025-07-27 14:32 | XMS_ITS | Data Portability ---
Author Organization [facility] [place] Address [address] [place] [address] Assessment Encounter Date Assessment Date Assessment LastModified [...] skeleton + vertebral fracture assessment 2019 [address] [facility], [address], [place], [address], 11:35:12 Medication Orders None recorded. Patient TargetsNo targets recorded. Patient Instructions Encounter Date Encounter Id Patient Instructions Last Modified By Organization Details Last Modified Time 07/25/2020 [id number] [email or web address] Not available 11:34:25 Reason for Referral None Reported. Results Created Date Observation Date Name Description Value Unit Range Abnormal Flag Note LastModifiedBy Organization Detail LastModifiedTime 09/22/19 21 MAMMO , scree nancy, bilat eral No observ ation record ed. layran Not Available 2020 15:46:06 01/06/20 21 DEXA, axial skele ton + verte bral fract ure asses sment No observ ation record ed. aruehrup [facility] [address], [place], [address], 01/12/2021 15:15:50 Result Notes None recorded. Problems Name Problem SNOMED Code Status Onset Date Resolution Date Notes Provider Name and Address Organization Details Recorded Time Microscop ic hematuria 050048868 Active 2010 MICROSCOPI C HEMATURIA; Recorded Elsewhere: No Locatio n: [facility] rce: EHR Chroni c: N Practice ID: 0001 Billa ble Time: 11:30:00 AM Not Available [facility] 0 15:53:17 Screening for malignant neoplasm of rectum Active 2010 Screening for malignant neoplasms of the rectum;Rec orded Elsewhere: No Locatio n: [facility] rce: EHR Chroni c: N Practice ID: 0001 Billa ble Time: 11:30:00 AM Not Available [facility] 0 15:53:17 Breathing painful 68303944 Active 2013 Chest wall pain;Recor ded Elsewhere: No Locatio n: [facility] rce: EHR Chroni c: N Practice ID: 0001 Billa ble Time: 01:00:00 PM Not Available [facility] 0 15:53:17 Pain of breast 81067829 Active 2013 Breast pain;Recor ded Elsewhere: No Locatio n: [facility] rce: EHR Chroni c: N Practice ID: 0001 Billa ble Time: 01:00:00 PM Not Available [facility] 0 15:53:17 Specializ ed medical examinati on Active 2014 Gynecologi jomar Examinatio n;Recorded Elsewhere: No Locatio n: [facility] rce: EHR Chroni c: N Practice ID: 0001 Billa ble Time: 03:30:00 PM Not Available [facility] 0 15:53:17 Adult health examinati on Active 2014 ROUTINE MEDICAL EXAM;Recor ded Elsewhere: No Locatio n: [facility] rce: EHR Chroni c: N Practice ID: 0001 Billa ble Time: 03:30:00 PM Not Available [facility] 0 15:53:[address] Concept Active 2017 Encntr for general adult medical exam w/o abnormal findings;R ecorded Elsewhere: No Locatio n: [facility] rce: EHR Chroni c: N Practice ID: 0001 Billa ble Time: 01:00:00 PM Not Available [facility] 0 15:53:[address] Concept Active 2017 Well woman check w/o abnormal finding;Re corded Elsewhere: No Locatio n: [facility] rce: EHR Chroni c: N Practice ID: 0001 Billa ble Time: 01:00:00 PM Not Available [facility] 0 15:53:17 Dysuria 27598586 Active 2017 Dysuria;Re corded Elsewhere: No Locatio n: [facility] rce: EHR Chroni c: N Practice ID: 0001 Billa ble Time: 01:00:00 PM Not Available [facility] 0 15:53:17 Screening for malignant neoplasm of cervix Active 2017 Encounter for screening for malignant neoplasm of cervix;Rec orded Elsewhere: No Locatio n: [facility] rce: EHR Chroni c: N Practice ID: 0001 Billa ble Time: 01:00:00 PM Not Available [facility] 0 15:53:17 Evaluatio n finding Active 2017 Hematuria, unspecifie d;Recorded Elsewhere: No Locatio n: [facility] rce: EHR Chroni c: N Practice ID: 0001 Billa ble Time: 12:10:00 PM Not Available [facility] 0 15:53:17 Problem Notes None recorded. Medical Equipment None Reported. Allergies Allergen ID Allergen Name Allergen Category Reaction Reaction Severity Criticality Documentation Date Start Date Code Code System Note Provider Name and Address Organization Details Recorded Time 2804 Product containin g penicilli n (product) medicatio n Not available Not available Not available 07/25/2020 [address] [id number] [place] - [facility] 0 11:21:12 Medications Name Sig Start Date Stop Date Status Note LastModified by Organization Details LastModified Time Corgard 20 mg tablet take 1 tablet by oral route every day active Prescrib ed Elsewher e: Yes Loca tion: [facility] odify By: lbillhar tz Encou nter DateTime [...] Elsewher e: Yes Loca tion: [facility] odify By: greg alejo DateTime : 12/11/19 18 01:00:00 PM Not Available Not Available Not Available ondansetr on HCl 4 mg tablet take 2 tablet by oral route every 8 hours for 2 days active Prescrib ed Elsewher e: Yes Loca tion: [facility] odify By: greg alejo DateTime : 12/11/19 [...] Elsewher e: Yes Loca tion: [facility] odify By: arnie echeverria DateTime : 07/06/20 [...] Elsewher e: Yes Loca tion: [facility] odify By: candice Lassiter nter DateTime : 08/11/20 11 10:06:54 AM Not Available Not Available Not Available zolpidem 10 mg tablet take 1 tablet by oral route every day at bedtime active Prescrib ed Elsewher e: Yes Loca tion: [facility] odify By: greg Waller ncounter DateTime : 12/11/19 18 01:00:00 PM Not Available Not Available Not Available Lipitor 10 mg tablet take 1 tablet by oral route every day active Prescrib ed Elsewher e: Yes Loca tion: [facility] odify By: candice Lassiter nter DateTime : 08/11/20 11 10:06:54 AM Not Available Not Available Not Available cefaclor 125 mg/5 mL oral suspensio n take 10 millilit er by oral route every 8 hours active Prescrib ed Elsewher e: Yes Loca tion: [facility] odify By: greg Waller ncounter DateTime : 12/11/19 18 01:00:00 PM Not Available Not Available Not Available Bactrim DS 800 mg-160 mg tablet take 1 tablet by oral route every 12 hours 2017 active Prescrib ed Elsewher e: No Locat ion: [facility] odify By: arline echeverria DateTime : 08/04/20 [...] Elsewher e: Yes Loca tion: [facility] odify By: arnie echeverria DateTime : 07/06/20 14 01:00:00 PM Not Available Not Available Not Available Abaneu-SL 600 mcg-600 mcg sublingua l tablet active Prescrib ed Elsewher e: Yes [facility] Vickie fernandez By: greg Christin sapna DateTime : 12/11/19 01:00:00 PM Not Available Not Available Not Available Fluzone High-Dose Quad (PF) 240 mcg/0.7 mL IM syringe PHARMACY ADMINIST EREEvi 07/25 completed Not Available Not Available Not Available Vitals Date Recorded Body weight Systolic And Diastolic Provider Name and Address Organization Details Last Updated DateTime 07/25/2020 10449.51 g 110/69 mm[Hg] Thao Shelton [facility] 07/25/2020 11:21:01 Social History None recorded. [...] Diagnosis SNOMED-CT Code Diagnosis ICD10 Code Diagnosis IMO Codes Diagnosis Note [id number] Rosalie Paris , [facility] [address] [address] 07/25/2020 11:09:32 07/25/2020 11:51:18 Gynecologic examination 74636413 Z01.419 Take Calcium with Vitamin D 12-1500mg daily. Do monthly self breast exams. It is advised to get annual flu shot in the fall and she could obtain at [facility] or [facility] care clinic. If you haven't received the [...] cancer. Last pap 2018 wnl SPouse in prison. No partner Postmenopa usal osteopenia [id number] M85.80 To find out if PCP has [...] 2 [place] Mildred Shipman [id number] 11/24/2020 1 [place] Barbie M Ramonita [id number] Notes Date Note Type Note Provider Name and Address Organization Details Recorded Time 0 text/html Annual GYNReported by PatientHistoryFor history, patient reportsno gynecologic complaints.Genitourina ry symptomsFor urinary symptoms, patient reportsno hematuriaandno incontinence. For vulva, patient reportsno genital lesion. For vagina, patient reportsnormal vaginal discharge. For menstrual cycle, (postmenopause).Breast symptomsFor breast, patient reportsno breast pain,no breast lump, andno nipple discharge.Endocrine symptomsFor sexual complaints, patient reportsno sexual complaints,no pain during intercourse, andnormal libido. For menopausal symptoms, patient reportsno menopausal symptomsandnormal vaginal lubrication.Psychologi jomar symptomsFor psychological symptoms, patient reportsno depression,no anxiety, andno pmdd.Preventative measuresFor preventive measures, patient reportsencourage self breast examination,encourage regular exercise,encourage no tobacco use,encourage regular mammograms starting age 40,needs to schedule mammogram, andneeds to schedule colonoscopy(dexa ??? pcp manages colonoscopy). Spouse in prison. Rosalie Paris, JAYS[place]- [address], [place], [address], [facility] 07/25/2020 11:41:37 OBGyn Episode No OBEpisode recorded.
== END 2025-07-27 13:00 | disposition home or self-care (01) ==
PROVIDERS: PCP Nurse Practitioner Family; Visit Provider Nurse Practitioner Family
DX: I95.1 Orthostatic hypotension (principal); Z79.899 Other long term (current) drug therapy
CPT/HCPCS: 36415; 80053; 81001; 87086